=== PATIENT | female | born 1995 | race Two or more races ===

== ENCOUNTER 2016-11-06 22:32 | Emergency (ER) | payer BC, OTHER ==
[2016-11-06 22:53] VITALS: PULSE 98
[2016-11-06] MEDS ORDERED: METOCLOPRAMIDE 5 MG/ML 2 ML VIAL IVP STA (23:27)
[2016-11-06] MEDS ORDERED: MORPHINE SULFATE 2 MG/ML SYRINGE IVP ONE (23:27)
[2016-11-06] MEDS ORDERED: SODIUM CHLORIDE 0.9% 1,000 ML IV ONE (23:28)
--- NOTE | 2016-11-06 23:32 | ED ---
Abdominal Pain HPI - General Chief Complaint: Abdominal Pain Stated Complaint: 16 weeks /Cramping Time Seen by Provider: 11/06/16 23:21 Source: patient Mode of arrival: ambulatory Limitations: no limitations - History of Present Illness Initial Comments: 21-year-old female patient presents to emergency department today for complaints of upper abdominal pain. Patient states that she had onset of pain around 9 PM this evening. States she states shortly after she had onset of vomiting. She states she has vomited continuously since 9:00. She does report that she is 16 weeks . She has no complications with her so far. She is . She denies any vaginal bleeding or discharge. She denies any radiation of the pain to her back. She describes the pain as a sharp cramping pain in both her right and left upper quadrants. She denies ever having pain similar to this in the past. Last bowel movement was this morning, she states it was normal. Patient denies any recent rash, fever, chills, shortness breath, chest pain, diarrhea, constipation, back pain, numbness, tingling, dizziness, weakness, hematuria, dysuria, urinary urgency, urinary frequency, headache, visual changes, or any other complaints. - Related Data Home Medications Medication Instructions Recorded Confirmed Egv-Qavh-Osoah Acid 1 cap PO DAILY 11/06/16 11/06/16 [-U Capsule (formulary)] Previous Rx's Medication Instructions Recorded Nitrofurantoin Monohyd/M-Cryst 100 mg PO Q12HR #14 cap 11/07/16 [Macrobid] Allergies Allergy/AdvReac Type Severity Reaction Status Date / Time No Known Allergies Allergy Verified 11/06/16 23:13 Review of Systems ROS Statement: Those systems with pertinent positive or pertinent negative responses have been documented in the HPI. ROS Other: All systems not noted in ROS Statement are negative. Past Medical History Past Medical History: Thyroid Disorder History of Any Multi-Drug Resistant Organisms: None Reported Past Surgical History: No Surgical Hx Reported Past Psychological History: Anxiety Smoking Status: Never smoker Past Alcohol Use History: None Reported Past Drug Use History: None Reported General Exam Limitations: no limitations General appearance: alert, in distress (Mild), other (Social developed, well- nourished 21-year-old female patient in mild distress related to pain. Vital signs upon presentation were temperature 98.9F, pulse 98, respirations 22, blood pressure 141/71, pulse ox 99% on room air.) Eye exam: Present: normal appearance, PERRL, EOMI. Absent: scleral icterus, conjunctival injection, periorbital swelling ENT exam: Present: normal exam, normal oropharynx, mucous membranes moist Respiratory exam: Present: normal lung sounds bilaterally. Absent: respiratory distress, wheezes, rales, rhonchi, stridor Cardiovascular Exam: Present: regular rate, normal rhythm, normal heart sounds. Absent: systolic murmur, diastolic murmur, rubs, gallop, clicks GI/Abdominal exam: Present: soft, tenderness (Right upper quadrant and left upper quadrant tenderness.), normal bowel sounds. Absent: distended, guarding, rebound, rigid Extremities exam: Present: normal inspection, full ROM, normal capillary refill. Absent: tenderness, pedal edema, joint swelling, calf tenderness Neurological exam: Present: alert, oriented X3, CN II-XII intact Psychiatric exam: Present: normal affect, normal mood Skin exam: Present: warm, dry, intact, normal color. Absent: rash Course Vital Signs 11/06/16 22:50 Temperature 98.9 F Pulse Rate 98 Respiratory 22 Rate Blood Pressure 141/71 O2 Sat by Pulse 99 Oximetry Medical Decision Making - Medical Decision Making 21-year-old female patient presents to emergency department today complaining of upper abdominal pain and vomiting since 9 PM. Patient is 16 weeks however denies any contraction type pain, vaginal bleeding, or vaginal discharge. Lab work was reviewed and did show white blood cell count 13.1, felt to be reactive from vomiting. Other labs are unremarkable. Urinalysis did show many bacteria. Patient is asymptomatic or we will treat her for this with Macrobid. heart tones were 142. Patient was given 1 L of normal saline, 2 mg morphine, and 10 mg of Reglan. Upon reevaluation patient states that she is feeling much better, denies any current symptoms, and states she is eager to go home. I did instruct patient to follow up with her primary care physician for recheck tomorrow. I did instruct her to return here immediately for any new, worsening, or concerning symptoms. She verbalized understanding and agreed with this plan. - Lab Data Result diagrams: 11/06/16 23:54 11/06/16 23:54 Lab Results 11/06/16 11/06/16 11/07/16 Range/Units 23:54 23:54 00:15 WBC 13.1 H (4.0-11.0) k/uL RBC 3.99 (3.80-5.40) m/uL Hgb 11.9 (11.4-16.0) gm/dL Hct 34.2 (34.0-46.0) % MCV 85.6 (80.0-100.0) fL MCH 29.7 (25.0-35.0) pg MCHC 34.7 (31.0-37.0) g/dL RDW 14.1 (11.5-15.5) % Plt Count 203 (150-450) k/uL Neutrophils % 70 % Lymphocytes % 24 % Monocytes % 3 % Eosinophils % 1 % Basophils % 0 % Neutrophils # 9.1 H (1.3-7.7) k/uL Lymphocytes # 3.1 (1.0-4.8) k/uL Monocytes # 0.5 (0-1.0) k/uL Eosinophils # 0.2 (0-0.7) k/uL Basophils # 0.0 (0-0.2) k/uL Sodium 135 L (137-145) mmol/L Potassium 3.7 (3.5-5.1) mmol/L Chloride 105 (98-107) mmol/L Carbon Dioxide 20 L (22-30) mmol/L Anion Gap 10 mmol/L BUN 5 L (7-17) mg/dL Creatinine 0.50 L (0.52-1.04) mg/dL Est GFR (MDRD) Af Amer >60 (>60 ml/min/1.73 sqM) Est GFR (MDRD) Non-Af >60 (>60 ml/min/1.73 sqM) Glucose 84 (74-99) mg/dL Calcium 9.3 (8.4-10.2) mg/dL Total Bilirubin 0.3 (0.2-1.3) mg/dL AST 17 (14-36) U/L ALT 27 (9-52) U/L Alkaline Phosphatase 49 (38-126) U/L Total Protein 6.1 L (6.3-8.2) g/dL Albumin 3.3 L (3.5-5.0) g/dL Amylase 31 (30-110) U/L Lipase 156 (23-300) U/L Urine Color Light Yellow Urine Appearance Cloudy H (Clear) Urine pH 7.0 (5.0-8.0) Ur Specific [place] 1.006 (1.001-1.035) Urine Protein Negative (Negative) Urine Glucose (UA) Negative (Negative) Urine Ketones Negative (Negative) Urine Blood Negative (Negative) Urine Nitrite Negative (Negative) Urine Bilirubin Negative (Negative) Urine Urobilinogen <2.0 (<2.0) mg/dL Ur Leukocyte Esterase Negative (Negative) Urine WBC 1 (0-5) /hpf Ur Squamous Epith Cells <1 (0-4) /hpf Amorphous Sediment Rare H (None) /hpf Urine Bacteria Many H (None) /hpf Urine Mucus Rare H (None) /hpf Disposition Clinical Impression: Abdominal pain, Asymptomatic bacteriuria during Disposition: HOME SELF-CARE Condition: Good Instructions: Abdominal Pain in (ED), Urinary Tract Infection in (ED) Additional Instructions: Increase fluids. Follow-up with her primary care physician for recheck in 1-2 days. Complete antibiotic prescription in full. Return immediately for any new , worsening, or concerning symptoms. Prescriptions: Nitrofurantoin Monohyd/M-Cryst [Macrobid] 100 mg PO Q12HR #14 cap Referrals: Michael Winkler MD [Primary Care Provider] - 1-2 days Time of Disposition: 01:01
[2016-11-07 00:02] LABS: Basophils % (A) 0 %; CH 29.2; CHCM 34.3; Eosinophils # (A) 0.2 k/uL (0-0.7); Eosinophils % (A) 1 %; HCT 34.2 % (34.0-46.0); HDW 3.06; HGB 11.9 gm/dL (11.4-16.0); Luc # (Auto) 0.16; Luc % (Auto) 1; Lymphocytes # (A) 3.1 k/uL (1.0-4.8); Lymphocytes % (A) 24 %; MCH 29.7 pg (25.0-35.0); MCHC 34.7 g/dL (31.0-37.0); MCV 85.6 fL (80.0-100.0); Mean Platelet Volume 7.5; Monocytes # (A) 0.5 k/uL (0-1.0); Monocytes % (A) 3 %; Neutrophils # (A) 9.1 k/uL (1.3-7.7); Neutrophils % (A) 70 %; RBC 3.99 m/uL (3.80-5.40); RDW 14.1 % (11.5-15.5); WBC 13.1 k/uL (4.0-11.0); WBC (Perox) 13.41
[2016-11-07 00:11] LABS: ALT 27 U/L (9-52); AST 17 U/L (14-36); Alkaline Phosphatase 49 U/L (38-126); Amylase 31 U/L (30-110); Anion Gap 10 mmol/L; Blood Urea Nitrogen 5 mg/dL (7-17); Calcium 9.3 mg/dL (8.4-10.2); Carbon Dioxide 20 mmol/L (22-30); Chloride 105 mmol/L (98-107); Glucose 84 mg/dL (74-99); Non-African American GFR(MDRD) >60 (>60 ml/min/1.73 sqM); Potassium 3.7 mmol/L (3.5-5.1); Sodium 135 mmol/L (137-145); Total Bilirubin 0.3 mg/dL (0.2-1.3); Total Protein 6.1 g/dL (6.3-8.2)
[2016-11-07 00:36] LABS: Amorphous Sediment,Urine Rare /hpf; Appearance,Urine Cloudy (Clear); Bacteria,Urine Many /hpf; Bilirubin,Urine Negative (Negative); Glucose,Urine (UA) Negative (Negative); Ketones,Urine Negative (Negative); Leukocyte Esterase,Urine Negative (Negative); Mucus,Urine Rare /hpf; Nitrite,Urine Negative (Negative); Particle Count 6507; Protein,Urine Negative (Negative); Specific Gravity,Urine 1.006 (1.001-1.035); Squamous Epithelial Cell,Urine <1 /hpf (0-4); UA Billing (MACRO vs. MICRO) MICRO; Urobilinogen,Urine <2.0 mg/dL (<2.0); WBC,Urine 1 /hpf (0-5)
[2016-11-07 01:22] VITALS: BP 130/72; RESP 16; TEMP 98.7
== END 2016-11-07 01:21 | disposition home or self-care (01) ==
LOC: EC 22:32
DX: O99.89 Other specified diseases and conditions complicating pregnancy, childbirth and the puerperium (principal); R10.10 Upper abdominal pain, unspecified; R82.71 Bacteriuria; O21.0 Mild hyperemesis gravidarum; Z3A.16 16 weeks gestation of pregnancy
CPT/HCPCS: 99284 ×2; 96374 ×2; 96375 ×2; 36415; 80053; 82150; 83690; 85025; 81001; J2765; J2270

== ENCOUNTER 2017-09-03 17:23 | Emergency (ER) | payer BC, OTHER ==
[2017-09-03 18:32] VITALS: TEMP 98.3
--- NOTE | 2017-09-03 20:00 | ED ---
General Adult HPI - General Chief complaint: Upper Respiratory Infection Stated complaint: vomiting, congestion Time Seen by Provider: 09/03/17 19:33 Source: patient, RN notes reviewed Mode of arrival: ambulatory Limitations: no limitations - History of Present Illness Initial comments: 21-year-old female presents to the emergency department for a chief complaint of cough 2 days. Patient denies history of asthma. Denies shortness of breath. Patient also admits to ear pain bilaterally. Patient states she has a sore throat 2 days as well. Patient also has been experiencing some nausea with 2 episodes of vomiting. Patient denies nausea at this time. Denies any chance of . Patient also has had 2 bouts of diarrhea for the past 2 days. Patient states she has been able to eat saltine crackers and drink water. Patient denies any fevers. Patient denies any neck pain. Patient denies any abdominal pain. Denies any urinary symptoms such as pain with urination or increased frequency of urination. Patient has no other complaints at this time including shortness of breath, chest pain, abdominal pain, nausea or vomiting, headache, or visual changes. - Related Data Home Medications Medication Instructions Recorded Confirmed Acetaminophen Tab [Tylenol Tab] 650 mg PO Q6H PRN 09/03/17 09/03/17 Dm/Acetaminophen/Doxylamine [Vicks 1 cap PO HS 09/03/17 09/03/17 Nyquil Liquicaps] Previous Rx's Medication Instructions Recorded Ondansetron HCl [Zofran] 4 mg PO Q8HR PRN #14 tablet 09/03/17 Allergies Allergy/AdvReac Type Severity Reaction Status Date / Time No Known Allergies Allergy Verified 09/03/17 19:45 Review of Systems ROS Statement: Those systems with pertinent positive or pertinent negative responses have been documented in the HPI. ROS Other: All systems not noted in ROS Statement are negative. Past Medical History Past Medical History: Thyroid Disorder History of Any Multi-Drug Resistant Organisms: None Reported Past Surgical History: No Surgical Hx Reported Past Psychological History: Anxiety Smoking Status: Never smoker Past Alcohol Use History: None Reported Past Drug Use History: None Reported General Exam Limitations: no limitations General appearance: alert, in no apparent distress Head exam: Present: atraumatic, normocephalic, normal inspection Eye exam: Present: normal appearance, PERRL, EOMI. Absent: scleral icterus, conjunctival injection, periorbital swelling ENT exam: Present: normal exam, normal oropharynx, mucous membranes moist, TM's normal bilaterally, normal external ear exam Neck exam: Present: normal inspection, full ROM. Absent: tenderness, meningismus, lymphadenopathy Respiratory exam: Present: normal lung sounds bilaterally. Absent: respiratory distress, wheezes, rales, rhonchi, stridor Cardiovascular Exam: Present: regular rate, normal rhythm, normal heart sounds. Absent: systolic murmur, diastolic murmur, rubs, gallop, clicks GI/Abdominal exam: Present: soft, tenderness (minimal generalized abdominal tenderness), normal bowel sounds. Absent: distended, guarding, rebound, rigid Neurological exam: Present: alert, oriented X3, CN II-XII intact Psychiatric exam: Present: normal affect, normal mood Course Vital Signs 09/03/17 18:29 Temperature 98.3 F Pulse Rate 71 Respiratory 18 Rate Blood Pressure 100/64 O2 Sat by Pulse 99 Oximetry Medical Decision Making - Medical Decision Making 21-year-old female presents to the emergency department for multiple complaints. Patient has been experiencing a cough, ear pain, sore throat and 2 bouts of vomiting and diarrhea 2 days. No fevers. Vitals within normal limits at the emergency department. On exam lungs clear to auscultation bilaterally. Tympanic membranes non-erythematous. Abdomen with minimal tenderness. Chest x-ray shows no acute process. Strep negative. Patient likely has a viral gastroenteritis as well as upper respiratory infection. She was educated to eat from the [employer] diet. She was educated to remain hydrated with plenty of fluids. She will return to the emergency room if she has any worsening symptoms. Otherwise she'll follow-up with primary care in 1-2 days. - Lab Data Lab Results 09/03/17 Range/Units 19:59 Group A Strep Rapid Negative (Negative) Disposition Clinical Impression: Gastroenteritis, Upper respiratory infection Disposition: HOME SELF-CARE Condition: Good Instructions: Upper Respiratory Infection (ED), Gastroenteritis (ED) Additional Instructions: Please eat bananas, rice, applesauce, or toast. Please drink plenty of fluids. Please follow-up with primary care in 1-2 days. Return to the emergency department if you have any worsening symptoms. Prescriptions: Ondansetron HCl [Zofran] 4 mg PO Q8HR PRN #14 tablet PRN Reason: Nausea Is patient prescribed a controlled substance at d/c from ED?: No Referrals: Michael Winkler MD [Primary Care Provider] - 1-2 days Time of Disposition: 21:03
--- NOTE | 2017-09-03 20:54 | XR ---
EXAMINATION: XR chest 2V DATE AND TIME: 09/03/2017 8:44 PM ORDERING PROVIDER: Sidney Gao CLINICAL INDICATION: Pain TECHNIQUE: PA and lateral COMPARISON: None. DESCRIPTION: The lungs are clear. The pleural spaces are negative. The cardiac silhouette is not enlarged. The mediastinal and pleural silhouettes are unremarkable. The skeletal structures are intact without focal findings. The soft tissues are unremarkable. IMPRESSION: NO ACUTE PROCESS.
[2017-09-03 21:09] VITALS: PULSE 86; RESP 15
[2017-09-03 21:11] VITALS: BP 119/71
== END 2017-09-03 21:52 | disposition home or self-care (01) ==
LOC: EC 17:23
DX: K52.9 Noninfective gastroenteritis and colitis, unspecified (principal); J06.9 Acute upper respiratory infection, unspecified; H92.03 Otalgia, bilateral; Z79.891 Long term (current) use of opiate analgesic; Z79.899 Other long term (current) drug therapy
CPT/HCPCS: 71046; 87081; 87430; 99283

== ENCOUNTER 2018-03-20 17:12 | Emergency (ER) | payer BC, OTHER ==
[2018-03-20] MEDS ORDERED: PANTOPRAZOLE 40 MG/10 ML VIAL IVP STA (17:45)
[2018-03-20] MEDS ORDERED: SODIUM CHLORIDE 0.9% 2,000 ML IV STA (17:45)
[2018-03-20] MEDS ORDERED: ONDANSETRON 4 MG/2 ML VIAL IVP STA (17:45)
--- NOTE | 2018-03-20 17:53 | ED ---
Nausea/Vomiting/Diarrhea HPI - General Chief complaint: Nausea/Vomiting/Diarrhea Stated complaint: NVD Time Seen by Provider: 03/20/18 17:45 Source: patient, RN notes reviewed Mode of arrival: ambulatory Limitations: no limitations - History of Present Illness Initial comments: 22-year-old female sent emergency Department with chief complaint of nausea, vomiting, diarrhea. Patient states symptoms started this morning. She states that she's had continuous nausea vomiting diarrhea. Patient denies any melena, hematochezia, hematemesis coffee-ground emesis. Denies fevers or chills. Patient states that her last episode of emesis was bile approximately 10 minutes prior arrival. Patient complains of mild diffuse abdominal discomfort. Patient has no fever or chills. Denies any chance . Denies any vaginal bleeding or vaginal discharge. - Related Data Home Medications Medication Instructions Recorded Confirmed Etonogestrel/Ethinyl Estradiol 1 ring VG Q28D 03/20/18 03/20/18 [Nuvaring Vaginal Ring] Previous Rx's Medication Instructions Recorded Ondansetron Odt [Zofran Odt] 4 mg PO Q8HR PRN #10 tab 03/20/18 Allergies Allergy/AdvReac Type Severity Reaction Status Date / Time No Known Allergies Allergy Verified 03/20/18 18:53 Review of Systems ROS Statement: Those systems with pertinent positive or pertinent negative responses have been documented in the HPI. ROS Other: All systems not noted in ROS Statement are negative. Past Medical History Past Medical History: Thyroid Disorder History of Any Multi-Drug Resistant Organisms: None Reported Past Surgical History: No Surgical Hx Reported Past Psychological History: Anxiety Smoking Status: Never smoker Past Alcohol Use History: None Reported Past Drug Use History: None Reported General Exam Limitations: no limitations General appearance: alert, in no apparent distress Head exam: Present: atraumatic, normocephalic, normal inspection Neck exam: Present: normal inspection. Absent: tenderness, meningismus, lymphadenopathy Respiratory exam: Present: normal lung sounds bilaterally. Absent: respiratory distress, wheezes, rales, rhonchi, stridor Cardiovascular Exam: Present: regular rate, normal rhythm, normal heart sounds. Absent: systolic murmur, diastolic murmur, rubs, gallop, clicks GI/Abdominal exam: Present: soft, tenderness (Mild diffuse), normal bowel sounds. Absent: distended, guarding, rebound, rigid Back exam: Absent: CVA tenderness (R), CVA tenderness (L) Skin exam: Present: warm, dry, intact, normal color. Absent: rash Course Vital Signs 03/20/18 03/20/18 17:14 18:21 Temperature 98.5 F Pulse Rate 100 96 Respiratory 18 16 Rate Blood Pressure 115/78 109/69 O2 Sat by Pulse 99 99 Oximetry Medical Decision Making - Medical Decision Making 22-year-old female presents emergency department for nausea vomiting diarrhea. Patient had lab work, IV hydration, antiemetics. Patient states that she feels much better at this time. Patient's had no recurrence of emesis. Patient will be discharged with Zofran advised to stick to clear liquid diet and progress as tolerated. - Lab Data Result diagrams: 03/20/18 18:15 03/20/18 18:15 Lab Results 03/20/18 03/20/18 03/20/18 Range/Units 18:15 18:15 18:30 WBC 12.3 H (3.8-10.6) k/uL RBC 5.21 (3.80-5.40) m/uL Hgb 14.4 (11.4-16.0) gm/dL Hct 43.1 (34.0-46.0) % MCV 82.8 (80.0-100.0) fL MCH 27.7 (25.0-35.0) pg MCHC 33.5 (31.0-37.0) g/dL RDW 15.3 (11.5-15.5) % Plt Count 264 (150-450) k/uL Neutrophils % 89 % Lymphocytes % 6 % Monocytes % 3 % Eosinophils % 1 % Basophils % 0 % Neutrophils # 11.0 H (1.3-7.7) k/uL Lymphocytes # 0.8 L (1.0-4.8) k/uL Monocytes # 0.3 (0-1.0) k/uL Eosinophils # 0.1 (0-0.7) k/uL Basophils # 0.0 (0-0.2) k/uL Sodium 142 (137-145) mmol/L Potassium 4.3 (3.5-5.1) mmol/L Chloride 111 H (98-107) mmol/L Carbon Dioxide 21 L (22-30) mmol/L Anion Gap 10 mmol/L BUN 14 (7-17) mg/dL Creatinine 0.84 (0.52-1.04) mg/dL Est GFR (CKD-EPI)AfAm >90 (>60 ml/min/1.73 sqM) Est GFR (CKD-EPI)NonAf >90 (>60 ml/min/1.73 sqM) Glucose 95 (74-99) mg/dL Calcium 9.2 (8.4-10.2) mg/dL Total Bilirubin 1.0 (0.2-1.3) mg/dL AST 25 (14-36) U/L ALT 35 (9-52) U/L Alkaline Phosphatase 41 (38-126) U/L Total Protein 7.4 (6.3-8.2) g/dL Albumin 4.3 (3.5-5.0) g/dL Amylase 36 (30-110) U/L Lipase 132 (23-300) U/L Urine Color Light Yellow Urine Appearance Clear (Clear) Urine pH 5.5 (5.0-8.0) Ur Specific [place] 1.012 (1.001-1.035) Urine Protein Negative (Negative) Urine Glucose (UA) Negative (Negative) Urine Ketones Negative (Negative) Urine Blood Negative (Negative) Urine Nitrite Negative (Negative) Urine Bilirubin Negative (Negative) Urine Urobilinogen <2.0 (<2.0) mg/dL Ur Leukocyte Esterase Negative (Negative) Urine HCG, Qual (Not Detectd) 03/20/18 Range/Units 18:30 WBC (3.8-10.6) k/uL RBC (3.80-5.40) m/uL Hgb (11.4-16.0) gm/dL Hct (34.0-46.0) % MCV (80.0-100.0) fL MCH (25.0-35.0) pg MCHC (31.0-37.0) g/dL RDW (11.5-15.5) % Plt Count (150-450) k/uL Neutrophils % % Lymphocytes % % Monocytes % % Eosinophils % % Basophils % % Neutrophils # (1.3-7.7) k/uL Lymphocytes # (1.0-4.8) k/uL Monocytes # (0-1.0) k/uL Eosinophils # (0-0.7) k/uL Basophils # (0-0.2) k/uL Sodium (137-145) mmol/L Potassium (3.5-5.1) mmol/L Chloride (98-107) mmol/L Carbon Dioxide (22-30) mmol/L Anion Gap mmol/L BUN (7-17) mg/dL Creatinine (0.52-1.04) mg/dL Est GFR (CKD-EPI)AfAm (>60 ml/min/1.73 sqM) Est GFR (CKD-EPI)NonAf (>60 ml/min/1.73 sqM) Glucose (74-99) mg/dL Calcium (8.4-10.2) mg/dL Total Bilirubin (0.2-1.3) mg/dL AST (14-36) U/L ALT (9-52) U/L Alkaline Phosphatase (38-126) U/L Total Protein (6.3-8.2) g/dL Albumin (3.5-5.0) g/dL Amylase (30-110) U/L Lipase (23-300) U/L Urine Color Urine Appearance (Clear) Urine pH (5.0-8.0) Ur Specific [place] (1.001-1.035) Urine Protein (Negative) Urine Glucose (UA) (Negative) Urine Ketones (Negative) Urine Blood (Negative) Urine Nitrite (Negative) Urine Bilirubin (Negative) Urine Urobilinogen (<2.0) mg/dL Ur Leukocyte Esterase (Negative) Urine HCG, Qual Not Detected (Not Detectd) Disposition Clinical Impression: Gastroenteritis Disposition: HOME SELF-CARE Condition: Stable Instructions (If sedation given, give patient instructions): Gastroenteritis ( ED) Additional Instructions: Please return to the Emergency Department if symptoms worsen or any other concerns. Prescriptions: Ondansetron Odt [Zofran Odt] 4 mg PO Q8HR PRN #10 tab PRN Reason: Nausea Is patient prescribed a controlled substance at d/c from ED?: No Referrals: Michael Winkler MD [Primary Care Provider] - 1-2 days Time of Disposition: 18:58
[2018-03-20 18:31] LABS: Basophils % (A) 0 %; Eosinophils # (A) 0.1 k/uL (0-0.7); Eosinophils % (A) 1 %; HCT 43.1 % (34.0-46.0); HGB 14.4 gm/dL (11.4-16.0); Lymphocytes # (A) 0.8 k/uL (1.0-4.8); Lymphocytes % (A) 6 %; MCH 27.7 pg (25.0-35.0); MCHC 33.5 g/dL (31.0-37.0); MCV 82.8 fL (80.0-100.0); Mean Platelet Volume 7.2; Monocytes # (A) 0.3 k/uL (0-1.0); Monocytes % (A) 3 %; Neutrophils % (A) 89 %; Platelet Count 264 k/uL (150-450); RBC 5.21 m/uL (3.80-5.40); RDW 15.3 % (11.5-15.5); WBC 12.3 k/uL (3.8-10.6)
[2018-03-20 18:41] LABS: Appearance,Urine Clear (Clear); Bilirubin,Urine Negative (Negative); Blood,Urine Negative (Negative); Color,Urine Light Yellow; Glucose,Urine (UA) Negative (Negative); Ketones,Urine Negative (Negative); Leukocyte Esterase,Urine Negative (Negative); Nitrite,Urine Negative (Negative); PH, Urine 5.5 (5.0-8.0); Protein,Urine Negative (Negative); Specific Gravity,Urine 1.012 (1.001-1.035); Urobilinogen,Urine <2.0 mg/dL (<2.0)
[2018-03-20 18:42] LABS: ALT 35 U/L (9-52); AST 25 U/L (14-36); Albumin 4.3 g/dL (3.5-5.0); Alkaline Phosphatase 41 U/L (38-126); Amylase 36 U/L (30-110); Anion Gap 10 mmol/L; Blood Urea Nitrogen 14 mg/dL (7-17); Calcium 9.2 mg/dL (8.4-10.2); Carbon Dioxide 21 mmol/L (22-30); Chloride 111 mmol/L (98-107); Glucose 95 mg/dL (74-99); Lipase 132 U/L (23-300); Potassium 4.3 mmol/L (3.5-5.1); Sodium 142 mmol/L (137-145); Total Protein 7.4 g/dL (6.3-8.2)
[2018-03-20 19:16] VITALS: BP 95/69; PULSE 66; RESP 18; TEMP 98.3
== END 2018-03-20 19:15 | disposition home or self-care (01) ==
LOC: EC 17:12
DX: K52.9 Noninfective gastroenteritis and colitis, unspecified (principal); Z79.3 Long term (current) use of hormonal contraceptives
CPT/HCPCS: 36415; 80053; 82150; 83690; 85025; 81003; 81025; 99284; 96374; 96375; 96361; J2405; C9113

== ENCOUNTER → 2018-09-26 | Outpatient (CLI) | payer BC, OTHER ==
[2018-09-26 12:41] LABS: Basophils % (A) 0 %; Eosinophils # (A) 0.2 k/uL (0-0.7); Eosinophils % (A) 2 %; HCT 39.9 % (34.0-46.0); HGB 13.2 gm/dL (11.4-16.0); Lymphocytes # (A) 3.2 k/uL (1.0-4.8); Lymphocytes % (A) 29 %; MCH 27.2 pg (25.0-35.0); MCHC 33.2 g/dL (31.0-37.0); MCV 81.8 fL (80.0-100.0); Mean Platelet Volume 7.2; Monocytes # (A) 0.2 k/uL (0-1.0); Monocytes % (A) 2 %; Neutrophils # (A) 7.2 k/uL (1.3-7.7); Neutrophils % (A) 66 %; Platelet Count 280 k/uL (150-450); RBC 4.88 m/uL (3.80-5.40); RDW 14.8 % (11.5-15.5); WBC 10.9 k/uL (3.8-10.6)
[2018-09-26 12:53] LABS: ALT 26 U/L (9-52); AST 26 U/L (14-36); African American GFR (CKD) >90 (>60 ml/min/1.73 sqM); Albumin 4.3 g/dL (3.5-5.0); Albumin/Globulin Ratio 1.4; Alkaline Phosphatase 46 U/L (38-126); Anion Gap 10 mmol/L; Blood Urea Nitrogen 14 mg/dL (7-17); Calcium 9.5 mg/dL (8.4-10.2); Carbon Dioxide 24 mmol/L (22-30); Chloride 105 mmol/L (98-107); Glucose 141 mg/dL (74-99); Sodium 139 mmol/L (137-145); Total Bilirubin 0.7 mg/dL (0.2-1.3); Total Protein 7.3 g/dL (6.3-8.2)
[2018-09-26 13:10] LABS: T4, Free (Free Thyroxine) 1.01 ng/dL (0.78-2.19)
== END | disposition home or self-care (01) ==
LOC: LABWHC1 12:15
PROVIDERS: ATTEND Nurse Practitioner Family
DX: R25.1 Tremor, unspecified (principal)
CPT/HCPCS: 36415; 80053; 82785; 84439; 84443; 84481; 85025

== ENCOUNTER 2019-12-21 23:32 | Emergency (ER) | payer BC, OTHER ==
[2019-12-21 23:37] VITALS: BP 139/82; PULSE 90; RESP 17; TEMP 98.7
[2019-12-21] MEDS ORDERED: SODIUM CHLORIDE 0.9% 500 ML 500 ML IV ONE (23:54)
--- NOTE | 2019-12-22 00:02 | ED ---
General Adult HPI - General Chief complaint: Vaginal Bleeding Stated complaint: Vaginal Bleeding, 8 wks pgt Time Seen by Provider: 12/21/19 23:40 Source: patient Mode of arrival: ambulatory Limitations: no limitations - History of Present Illness Initial comments: 24-year-old female presents to emergency Department with complaints of brown vaginal discharge, onset 30 minutes prior to arrival. Patient states she is 8 weeks , , and previously miscarried 2 months ago. She states she had a positive home test on 12/12/19, confirmed at her doctor's office on 12/15/2019. No US as of yet. Has established care with OBGYN in [place], she cannot recall the name. Patient reports a streak of brown discharge on the toilet paper with wiping. She does not have to wear a pad or liner. Patient also complains of very mild lower abdominal cramping. Denies radiation to her back. Patient denies any recent rash, fever, chills, cough, shortness of breath, chest pain, nausea, vomiting, diarrhea, constipation, back pain, numbness, tingling, dizziness, weakness, hematuria, dysuria, urinary urgency, urinary frequency, headache, visual changes, or any other complaints. - Related Data Home Medications Medication Instructions Recorded Confirmed Etonogestrel/Ethinyl Estradiol 1 ring VG Q28D 03/20/18 03/20/18 [Nuvaring Vaginal Ring] Previous Rx's Medication Instructions Recorded Ondansetron Odt [Zofran Odt] 4 mg PO Q8HR PRN #10 tab 03/20/18 Allergies Allergy/AdvReac Type Severity Reaction Status Date / Time No Known Allergies Allergy Verified 12/21/19 23:37 Review of Systems ROS Statement: Those systems with pertinent positive or pertinent negative responses have been documented in the HPI. ROS Other: All systems not noted in ROS Statement are negative. Past Medical History Past Medical History: Thyroid Disorder History of Any Multi-Drug Resistant Organisms: None Reported Past Surgical History: No Surgical Hx Reported Past Psychological History: Anxiety Smoking Status: Never smoker Past Alcohol Use History: None Reported Past Drug Use History: None Reported General Exam Limitations: no limitations (Well-developed, well-nourished female in no acute distress. Initial temperature 98.7F, pulse 90, respirations 17, blood pressure 139/82, pulse ox 98% on room air.) General appearance: alert, in no apparent distress Respiratory exam: Present: normal lung sounds bilaterally. Absent: respiratory distress, wheezes, rales, rhonchi, stridor Cardiovascular Exam: Present: regular rate, normal rhythm, normal heart sounds. Absent: systolic murmur, diastolic murmur, rubs, gallop, clicks GI/Abdominal exam: Present: soft, normal bowel sounds. Absent: distended, tenderness, guarding, rebound, rigid Neurological exam: Present: alert, oriented X3, CN II-XII intact Psychiatric exam: Present: normal affect, normal mood Skin exam: Present: warm, dry, intact, normal color. Absent: rash Course Vital Signs 12/21/19 23:34 Temperature 98.7 F Pulse Rate 90 Respiratory 17 Rate Blood Pressure 139/82 O2 Sat by Pulse 98 Oximetry Medical Decision Making - Medical Decision Making 24-year-old female patient presents to the emergency department today for evaluation of brown vaginal discharge concern for bleeding in early . She had positive home test on 12/12/2019. Has not had a normal period since spontaneous in October. Physical examination is unremarkable. Abdomen soft and nontender. Labs were obtained, ABO/Rh was A+. HCG was 43. US was obtained and showed no evidence for intrauterine . Did discuss findings and results with the patient. We did discuss possibility of early vs miscarriage. Also talked about the possibility of continued elevated hCG from previous in October or possibility of hCG secreting tumor though these possibilities are much less likely. She will be discharged to follow-up with her [facility] for recheck in 1-2 days. She is given a slip to have repeat hCG performed at this hospital and 2 days. Return parameters were discussed in detail. She verbalizes understanding and agrees with this plan. - Lab Data Result diagrams: 12/22/19 00:18 12/22/19 00:18 Lab Results 12/22/19 12/22/19 12/22/19 Range/Units 00:15 00:18 00:18 WBC 11.8 H (3.8-10.6) k/uL RBC 4.62 (3.80-5.40) m/uL Hgb 13.0 (11.4-16.0) gm/dL Hct 37.7 (34.0-46.0) % MCV 81.7 (80.0-100.0) fL MCH 28.1 (25.0-35.0) pg MCHC 34.5 (31.0-37.0) g/dL RDW 14.0 (11.5-15.5) % Plt Count 281 (150-450) k/uL MPV 7.7 Neutrophils % 57 % Lymphocytes % 36 % Monocytes % 3 % Eosinophils % 2 % Basophils % 1 % Neutrophils # 6.8 (1.3-7.7) k/uL Lymphocytes # 4.2 (1.0-4.8) k/uL Monocytes # 0.3 (0-1.0) k/uL Eosinophils # 0.2 (0-0.7) k/uL Basophils # 0.1 (0-0.2) k/uL Sodium (137-145) mmol/L Potassium (3.5-5.1) mmol/L Chloride (98-107) mmol/L Carbon Dioxide (22-30) mmol/L Anion Gap mmol/L BUN (7-17) mg/dL Creatinine (0.52-1.04) mg/dL Est GFR (CKD-EPI)AfAm (>60 ml/min/1.73 sqM) Est GFR (CKD-EPI)NonAf (>60 ml/min/1.73 sqM) Glucose (74-99) mg/dL Calcium (8.4-10.2) mg/dL Total Bilirubin (0.2-1.3) mg/dL AST (14-36) U/L ALT (4-34) U/L Alkaline Phosphatase (38-126) U/L Total Protein (6.3-8.2) g/dL Albumin (3.5-5.0) g/dL HCG, Quant mIU/mL Urine Color Light Yellow Urine Appearance Clear (Clear) Urine pH 6.5 (5.0-8.0) Ur Specific [place] 1.018 (1.001-1.035) Urine Protein Negative (Negative) Urine Glucose (UA) Negative (Negative) Urine Ketones Negative (Negative) Urine Blood Negative (Negative) Urine Nitrite Negative (Negative) Urine Bilirubin Negative (Negative) Urine Urobilinogen <2.0 (<2.0) mg/dL Ur Leukocyte Esterase Negative (Negative) Blood Type A Positive Blood Type Recheck No Previous Record Bld Type Recheck Status ABR ONLY 12/22/19 Range/Units 00:18 WBC (3.8-10.6) k/uL RBC (3.80-5.40) m/uL Hgb (11.4-16.0) gm/dL Hct (34.0-46.0) % MCV (80.0-100.0) fL MCH (25.0-35.0) pg MCHC (31.0-37.0) g/dL RDW (11.5-15.5) % Plt Count (150-450) k/uL MPV Neutrophils % % Lymphocytes % % Monocytes % % Eosinophils % % Basophils % % Neutrophils # (1.3-7.7) k/uL Lymphocytes # (1.0-4.8) k/uL Monocytes # (0-1.0) k/uL Eosinophils # (0-0.7) k/uL Basophils # (0-0.2) k/uL Sodium 136 L (137-145) mmol/L Potassium 4.4 (3.5-5.1) mmol/L Chloride 107 (98-107) mmol/L Carbon Dioxide 22 (22-30) mmol/L Anion Gap 7 mmol/L BUN 14 (7-17) mg/dL Creatinine 0.67 (0.52-1.04) mg/dL Est GFR (CKD-EPI)AfAm >90 (>60 ml/min/1.73 sqM) Est GFR (CKD-EPI)NonAf >90 (>60 ml/min/1.73 sqM) Glucose 125 H (74-99) mg/dL Calcium 9.4 (8.4-10.2) mg/dL Total Bilirubin 0.6 (0.2-1.3) mg/dL AST 37 H (14-36) U/L ALT 23 (4-34) U/L Alkaline Phosphatase 48 (38-126) U/L Total Protein 7.3 (6.3-8.2) g/dL Albumin 4.0 (3.5-5.0) g/dL HCG, Quant 43.6 mIU/mL Urine Color Urine Appearance (Clear) Urine pH (5.0-8.0) Ur Specific [place] (1.001-1.035) Urine Protein (Negative) Urine Glucose (UA) (Negative) Urine Ketones (Negative) Urine Blood (Negative) Urine Nitrite (Negative) Urine Bilirubin (Negative) Urine Urobilinogen (<2.0) mg/dL Ur Leukocyte Esterase (Negative) Blood Type Blood Type Recheck Bld Type Recheck Status - Radiology Data Radiology results: report reviewed OB ultrasound was obtained. Report was reviewed in its entirety. Impression by Dr. Kaur shows no evidence of intrauterine . Differential considerations include early or miscarriage, with the possibility of ectopic is not completely excluded. Correlate with serial beta hCG follow-up ultrasound as clinically indicated. Disposition Clinical Impression: Vaginal bleeding during Disposition: HOME SELF-CARE Condition: Good Instructions (If sedation given, give patient instructions): Threatened Miscarriage (ED) Additional Instructions: Follow up with your OBGYN for recheck as soon as possible. Return to this lab to have repeat hormone level drawn. Return to the emergency department immediately for any new, worsening, or concerning symptoms. Is patient prescribed a controlled substance at d/c from ED?: No Referrals: Michael Winkler MD [Primary Care Provider] - 1-2 days Time of Disposition: 02:09
[2019-12-22 00:30] LABS: Basophils # (A) 0.1 k/uL (0-0.2); Basophils % (A) 1 %; Eosinophils # (A) 0.2 k/uL (0-0.7); Eosinophils % (A) 2 %; HCT 37.7 % (34.0-46.0); Lymphocytes # (A) 4.2 k/uL (1.0-4.8); Lymphocytes % (A) 36 %; MCH 28.1 pg (25.0-35.0); MCHC 34.5 g/dL (31.0-37.0); MCV 81.7 fL (80.0-100.0); Mean Platelet Volume 7.7; Monocytes # (A) 0.3 k/uL (0-1.0); Monocytes % (A) 3 %; Neutrophils # (A) 6.8 k/uL (1.3-7.7); Neutrophils % (A) 57 %; Platelet Count 281 k/uL (150-450); RBC 4.62 m/uL (3.80-5.40); WBC 11.8 k/uL (3.8-10.6)
[2019-12-22 00:31] LABS: Appearance,Urine Clear (Clear); Bilirubin,Urine Negative (Negative); Blood,Urine Negative (Negative); Color,Urine Light Yellow; Glucose,Urine (UA) Negative (Negative); Ketones,Urine Negative (Negative); Leukocyte Esterase,Urine Negative (Negative); Nitrite,Urine Negative (Negative); PH, Urine 6.5 (5.0-8.0); Protein,Urine Negative (Negative); Specific Gravity,Urine 1.018 (1.001-1.035); Urobilinogen,Urine <2.0 mg/dL (<2.0)
[2019-12-22 01:03] LABS: ALT 23 U/L (4-34); African American GFR (CKD) >90 (>60 ml/min/1.73 sqM); Anion Gap 7 mmol/L; Blood Urea Nitrogen 14 mg/dL (7-17); Calcium 9.4 mg/dL (8.4-10.2); Carbon Dioxide 22 mmol/L (22-30); Chloride 107 mmol/L (98-107); Glucose 125 mg/dL (74-99); Non-African American GFR(CKD) >90 (>60 ml/min/1.73 sqM); Sodium 136 mmol/L (137-145); Total Bilirubin 0.6 mg/dL (0.2-1.3); Total Protein 7.3 g/dL (6.3-8.2)
[2019-12-22 01:10] LABS: AST 37 U/L (14-36); Alkaline Phosphatase 48 U/L (38-126); Potassium 4.4 mmol/L (3.5-5.1)
--- NOTE | 2019-12-22 01:10 | US ---
EXAM: US First Trimester , Transabdominal CLINICAL HISTORY: ITS.REASON US Reason: pain TECHNIQUE: Real-time transabdominal obstetrical ultrasound of the maternal pelvis and a first trimester with image documentation. COMPARISON: No relevant prior studies available. FINDINGS: Limitations: Limited transabdominal study. Gestation: No evidence of intrauterine . Placenta/amniotic fluid: Cannot be adequately evaluated due to the early gestational age. Uterus/cervix: Unremarkable as visualized. Ovaries: Unremarkable as visualized. Free fluid: No significant free fluid. IMPRESSION: No evidence of intrauterine . Differential considerations include early or miscarriage, with the possibility of ectopic not completely excluded. Correlate with serial beta hCG/followup ultrasound as clinically indicated.
[2019-12-22 01:19] LABS: HCG,Quantitative Serum 43.6 mIU/mL
== END 2019-12-22 02:21 | disposition home or self-care (01) ==
LOC: EC 23:32
DX: O20.9 Hemorrhage in early pregnancy, unspecified (principal); Z3A.08 8 weeks gestation of pregnancy
CPT/HCPCS: 36415; 76801; 80053; 81003; 84702; 85025; 86900; 86901; 99284

== ENCOUNTER 2019-12-23 05:47 | Emergency (ER) | payer BC, OTHER ==
[2019-12-23] MEDS ORDERED: ACETAMINOPHEN TAB 500 MG TAB PO STA (06:22)
--- NOTE | 2019-12-23 06:24 | ED ---
Female Urogenital HPI - General Chief complaint: Vaginal Bleeding Stated complaint: miscarriage Time Seen by Provider: 12/23/19 05:58 Source: patient, RN notes reviewed Mode of arrival: ambulatory Limitations: no limitations - History of Present Illness Initial comments: This a 24-year-old female presents emergency Department with chief complaint of vaginal bleeding in early . Patient is A1 she states that she had a miscarriage 2 months ago but states that she had a negative hCG and November. Patient was seen 2 days ago for spotting is found to have an hCG of 43.6. Patient states bleeding has increased to very heavy. She states that she does have some lower abdominal cramping no dysuria no significant urinary frequency. No fevers chills no flank pain or chest pain or shortness of breath. Patient is following with no joint out [facility] - Related Data Home Medications Medication Instructions Recorded Confirmed Etonogestrel/Ethinyl Estradiol 1 ring VG Q28D 03/20/18 03/20/18 [Nuvaring Vaginal Ring] Previous Rx's Medication Instructions Recorded Ondansetron Odt [Zofran Odt] 4 mg PO Q8HR PRN #10 tab 03/20/18 Allergies Allergy/AdvReac Type Severity Reaction Status Date / Time No Known Allergies Allergy Verified 12/23/19 05:57 Review of Systems ROS Statement: Those systems with pertinent positive or pertinent negative responses have been documented in the HPI. ROS Other: All systems not noted in ROS Statement are negative. Past Medical History Past Medical History: Thyroid Disorder History of Any Multi-Drug Resistant Organisms: None Reported Past Surgical History: No Surgical Hx Reported Past Psychological History: Anxiety Smoking Status: Never smoker Past Alcohol Use History: None Reported Past Drug Use History: None Reported General Exam Limitations: no limitations General appearance: alert, in no apparent distress Head exam: Present: atraumatic, normocephalic, normal inspection Eye exam: Present: normal appearance, PERRL, EOMI. Absent: scleral icterus, conjunctival injection, periorbital swelling Respiratory exam: Present: normal lung sounds bilaterally. Absent: respiratory distress, wheezes, rales, rhonchi, stridor Cardiovascular Exam: Present: regular rate, normal rhythm, normal heart sounds. Absent: systolic murmur, diastolic murmur, rubs, gallop, clicks GI/Abdominal exam: Present: soft, tenderness (Mild to moderate suprapubic), normal bowel sounds. Absent: distended, guarding, rebound, rigid Back exam: Absent: CVA tenderness (R), CVA tenderness (L) Neurological exam: Present: alert, oriented X3 Skin exam: Present: warm, dry, intact, normal color. Absent: rash Course Vital Signs 12/23/19 05:55 Temperature 98 F Pulse Rate 83 Respiratory 18 Rate Blood Pressure 116/72 O2 Sat by Pulse 99 Oximetry Medical Decision Making - Medical Decision Making 24-year-old presented for vaginal bleeding early . Patient's hCG days ago was 43.6, current hCG is 27. Patient is having a miscarriage. Patient we need control vitals are stable. Patient discharged advised to follow with [employer]. - Lab Data Lab Results 12/23/19 12/23/19 Range/Units 06:07 06:07 HCG, Quant 27.0 mIU/mL Urine Color Light Red Urine Appearance Cloudy H (Clear) Urine pH 5.5 (5.0-8.0) Ur Specific [place] 1.020 (1.001-1.035) Urine Protein 1+ H (Negative) Urine Glucose (UA) Negative (Negative) Urine Ketones Negative (Negative) Urine Blood Large H (Negative) Urine Nitrite Negative (Negative) Urine Bilirubin Negative (Negative) Urine Urobilinogen <2.0 (<2.0) mg/dL Ur Leukocyte Esterase Trace H (Negative) Urine RBC >182 H (0-5) /hpf Urine WBC 7 H (0-5) /hpf Ur Squamous Epith Cells 1 (0-4) /hpf Urine Mucus Occasional H (None) /hpf Disposition Clinical Impression: Miscarriage Disposition: HOME SELF-CARE Condition: Stable Instructions (If sedation given, give patient instructions): Miscarriage (ED) Additional Instructions: Please return to the Emergency Department if symptoms worsen or any other concerns. Is patient prescribed a controlled substance at d/c from ED?: No Referrals: Michael Winkler MD [Primary Care Provider] - 1-2 days Time of Disposition: 06:56
[2019-12-23 06:36] LABS: Appearance,Urine Cloudy (Clear); Bilirubin,Urine Negative (Negative); Blood,Urine Large (Negative); Color,Urine Light Red; Glucose,Urine (UA) Negative (Negative); Ketones,Urine Negative (Negative); Leukocyte Esterase,Urine Trace (Negative); Mucus,Urine Occasional /hpf; Nitrite,Urine Negative (Negative); PH, Urine 5.5 (5.0-8.0); Protein,Urine 1+ (Negative); RBC,Urine >182 /hpf (0-5); Squamous Epithelial Cell,Urine 1 /hpf (0-4); Urobilinogen,Urine <2.0 mg/dL (<2.0); WBC,Urine 7 /hpf (0-5)
[2019-12-23 07:14] VITALS: BP 138/86; PULSE 74; RESP 16; TEMP 97
== END 2019-12-23 07:14 | disposition home or self-care (01) ==
LOC: EC 05:47
DX: O03.9 Complete or unspecified spontaneous abortion without complication (principal); Z87.59 Personal history of other complications of pregnancy, childbirth and the puerperium
CPT/HCPCS: 36415; 81001; 84702; 99284

== ENCOUNTER 2020-02-10 10:24 | Emergency (ER) | payer BC, OTHER ==
[2020-02-10 10:39] VITALS: RESP 18
[2020-02-10] MEDS ORDERED: SODIUM CHLORIDE 0.9% 1,000 ML IV STA (11:01)
--- NOTE | 2020-02-10 11:04 | ED ---
General Adult HPI - General Chief complaint: Shortness of Breath Stated complaint: Abd pain, metal taste in mouth Time Seen by Provider: 02/10/20 10:43 Source: patient, RN notes reviewed Mode of arrival: ambulatory Limitations: no limitations - History of Present Illness Initial comments: 24-year-old female with thyroid disorder presents to the emergency room for several complaints. Patient states she started to not feel well yesterday. States she developed slight shortness of breath at that time as well as a metallic taste in her mouth. Patient reports that when she breathes through her mouth she feels fine but when she received her nose it feels shallow. Patient also reports she has had nausea vomiting and diarrhea. States she has abdominal pain as well which she thinks is because of the vomiting. She did have a fever of 101.1 earlier today but took DayQuil about 2 hours prior to arrival. She denies cough congestion sore throat.Patient has no other complaints at this time including chest pain, headache, or visual changes. - Related Data Home Medications Medication Instructions Recorded Confirmed No Known Home Medications 02/10/20 02/10/20 Allergies Allergy/AdvReac Type Severity Reaction Status Date / Time No Known Allergies Allergy Verified 02/10/20 13:37 Review of Systems ROS Statement: Those systems with pertinent positive or pertinent negative responses have been documented in the HPI. ROS Other: All systems not noted in ROS Statement are negative. Past Medical History Past Medical History: Thyroid Disorder History of Any Multi-Drug Resistant Organisms: None Reported Past Surgical History: No Surgical Hx Reported Past Psychological History: Anxiety Smoking Status: Never smoker Past Alcohol Use History: None Reported Past Drug Use History: Marijuana General Exam Limitations: no limitations General appearance: alert, in no apparent distress Head exam: Present: atraumatic, normocephalic, normal inspection Eye exam: Present: normal appearance, PERRL, EOMI. Absent: scleral icterus, conjunctival injection, periorbital swelling ENT exam: Present: normal exam, normal oropharynx, mucous membranes moist, TM's normal bilaterally, normal external ear exam Neck exam: Present: normal inspection. Absent: tenderness, meningismus, lymphadenopathy Respiratory exam: Present: normal lung sounds bilaterally. Absent: respiratory distress, wheezes, rales, rhonchi, stridor Cardiovascular Exam: Present: regular rate, normal rhythm, normal heart sounds. Absent: systolic murmur, diastolic murmur, rubs, gallop, clicks GI/Abdominal exam: Present: soft, tenderness (Generalized right-sided abdominal tenderness.) Neurological exam: Present: alert Course Vital Signs 02/10/20 02/10/20 10:34 14:32 Temperature 99.1 F 98.8 F Pulse Rate 98 80 Respiratory 18 18 Rate Blood Pressure 123/76 108/72 O2 Sat by Pulse 100 98 Oximetry - Reevaluation(s) Reevaluation #1: 02/10/20 12:37 Delay in care when lab did not receive or run hCG with urinalysis. Second delay in care when there were 2 code strokes in a row. Medical Decision Making - Medical Decision Making Patient presents for very several vague complaints. On it abdominal exam she does have right lower quadrant and right upper quadrant abdominal tenderness. Physical exam is otherwise generally unremarkable and vitals are stable without evidence of fever. CBC CMP unremarkable. Urinalysis unremarkable. CT abdomen and pelvis shows borderline to mildly enlarged right lower quadrant lymph nodes. Normal appendix. White count is normal. At this time given diarrhea and abdominal pain this is consistent with mesenteric adenitis. Recommend she follow up with her doctor and return here for any worsening symptoms. I discussed this case with attending Dr. Sandoval who agrees with this assessment and treatment plan. - Lab Data Result diagrams: 02/10/20 11:10 02/10/20 11:10 Lab Results 02/10/20 02/10/20 02/10/20 Range/Units 11:10 11:10 11:10 WBC 10.5 (3.8-10.6) k/uL RBC 4.73 (3.80-5.40) m/uL Hgb 12.9 (11.4-16.0) gm/dL Hct 39.1 (34.0-46.0) % MCV 82.6 (80.0-100.0) fL MCH 27.3 (25.0-35.0) pg MCHC 33.0 (31.0-37.0) g/dL RDW 14.3 (11.5-15.5) % Plt Count 292 (150-450) k/uL MPV 7.4 Neutrophils % 65 % Lymphocytes % 28 % Monocytes % 3 % Eosinophils % 2 % Basophils % 0 % Neutrophils # 6.9 (1.3-7.7) k/uL Lymphocytes # 3.0 (1.0-4.8) k/uL Monocytes # 0.4 (0-1.0) k/uL Eosinophils # 0.2 (0-0.7) k/uL Basophils # 0.0 (0-0.2) k/uL Sodium (137-145) mmol/L Potassium (3.5-5.1) mmol/L Chloride (98-107) mmol/L Carbon Dioxide (22-30) mmol/L Anion Gap mmol/L BUN (7-17) mg/dL Creatinine (0.52-1.04) mg/dL Est GFR (CKD-EPI)AfAm (>60 ml/min/1.73 sqM) Est GFR (CKD-EPI)NonAf (>60 ml/min/1.73 sqM) Glucose (74-99) mg/dL Calcium (8.4-10.2) mg/dL Total Bilirubin (0.2-1.3) mg/dL AST (14-36) U/L ALT (4-34) U/L Alkaline Phosphatase (38-126) U/L Total Protein (6.3-8.2) g/dL Albumin (3.5-5.0) g/dL Amylase (30-110) U/L Lipase (23-300) U/L Urine Color Yellow Urine Appearance Cloudy H (Clear) Urine pH 7.0 (5.0-8.0) Ur Specific [place] 1.020 (1.001-1.035) Urine Protein Negative (Negative) Urine Glucose (UA) Negative (Negative) Urine Ketones Negative (Negative) Urine Blood Negative (Negative) Urine Nitrite Negative (Negative) Urine Bilirubin Negative (Negative) Urine Urobilinogen <2.0 (<2.0) mg/dL Ur Leukocyte Esterase Negative (Negative) Urine RBC <1 (0-5) /hpf Urine WBC 1 (0-5) /hpf Ur Squamous Epith Cells 9 H (0-4) /hpf Urine Bacteria Rare H (None) /hpf Urine Mucus Occasional H (None) /hpf Urine HCG, Qual Not Detected (Not Detectd) Coronavirus (PCR) (Not Detectd) 02/10/20 02/10/20 Range/Units 11:10 11:10 WBC (3.8-10.6) k/uL RBC (3.80-5.40) m/uL Hgb (11.4-16.0) gm/dL Hct (34.0-46.0) % MCV (80.0-100.0) fL MCH (25.0-35.0) pg MCHC (31.0-37.0) g/dL RDW (11.5-15.5) % Plt Count (150-450) k/uL MPV Neutrophils % % Lymphocytes % % Monocytes % % Eosinophils % % Basophils % % Neutrophils # (1.3-7.7) k/uL Lymphocytes # (1.0-4.8) k/uL Monocytes # (0-1.0) k/uL Eosinophils # (0-0.7) k/uL Basophils # (0-0.2) k/uL Sodium 137 (137-145) mmol/L Potassium 4.1 (3.5-5.1) mmol/L Chloride 103 (98-107) mmol/L Carbon Dioxide 30 (22-30) mmol/L Anion Gap 4 mmol/L BUN 12 (7-17) mg/dL Creatinine 0.75 (0.52-1.04) mg/dL Est GFR (CKD-EPI)AfAm >90 (>60 ml/min/1.73 sqM) Est GFR (CKD-EPI)NonAf >90 (>60 ml/min/1.73 sqM) Glucose 115 H (74-99) mg/dL Calcium 9.7 (8.4-10.2) mg/dL Total Bilirubin 0.7 (0.2-1.3) mg/dL AST 28 (14-36) U/L ALT 26 (4-34) U/L Alkaline Phosphatase 48 (38-126) U/L Total Protein 7.1 (6.3-8.2) g/dL Albumin 4.1 (3.5-5.0) g/dL Amylase 40 (30-110) U/L Lipase 150 (23-300) U/L Urine Color Urine Appearance (Clear) Urine pH (5.0-8.0) Ur Specific [place] (1.001-1.035) Urine Protein (Negative) Urine Glucose (UA) (Negative) Urine Ketones (Negative) Urine Blood (Negative) Urine Nitrite (Negative) Urine Bilirubin (Negative) Urine Urobilinogen (<2.0) mg/dL Ur Leukocyte Esterase (Negative) Urine RBC (0-5) /hpf Urine WBC (0-5) /hpf Ur Squamous Epith Cells (0-4) /hpf Urine Bacteria (None) /hpf Urine Mucus (None) /hpf Urine HCG, Qual (Not Detectd) Coronavirus (PCR) Not Detected (Not Detectd) Disposition Clinical Impression: Abdominal pain, Diarrhea, Mesenteric adenitis Disposition: HOME SELF-CARE Condition: Good Instructions (If sedation given, give patient instructions): Mesenteric Adenitis (ED) Additional Instructions: Please take Motrin and Tylenol for pain and fever. Drink plenty of fluids. Follow-up with your doctor in one to 2 days. Return to the emergency room for any worsening symptoms. Is patient prescribed a controlled substance at d/c from ED?: No Referrals: Michael Winkler MD [Primary Care Provider] - 1-2 days Time of Disposition: 14:52
[2020-02-10] MEDS ORDERED: ONDANSETRON 4 MG/2 ML VIAL IVP STA (11:16)
[2020-02-10 11:25] LABS: Basophils % (A) 0 %; Eosinophils # (A) 0.2 k/uL (0-0.7); Eosinophils % (A) 2 %; HCT 39.1 % (34.0-46.0); HGB 12.9 gm/dL (11.4-16.0); Lymphocytes % (A) 28 %; MCH 27.3 pg (25.0-35.0); MCV 82.6 fL (80.0-100.0); Mean Platelet Volume 7.4; Monocytes # (A) 0.4 k/uL (0-1.0); Monocytes % (A) 3 %; Neutrophils # (A) 6.9 k/uL (1.3-7.7); Neutrophils % (A) 65 %; Platelet Count 292 k/uL (150-450); RBC 4.73 m/uL (3.80-5.40); RDW 14.3 % (11.5-15.5); WBC 10.5 k/uL (3.8-10.6)
[2020-02-10 11:33] LABS: ALT 26 U/L (4-34); AST 28 U/L (14-36); African American GFR (CKD) >90 (>60 ml/min/1.73 sqM); Albumin 4.1 g/dL (3.5-5.0); Alkaline Phosphatase 48 U/L (38-126); Amylase 40 U/L (30-110); Anion Gap 4 mmol/L; Blood Urea Nitrogen 12 mg/dL (7-17); Calcium 9.7 mg/dL (8.4-10.2); Carbon Dioxide 30 mmol/L (22-30); Chloride 103 mmol/L (98-107); Glucose 115 mg/dL (74-99); Lipase 150 U/L (23-300); Non-African American GFR(CKD) >90 (>60 ml/min/1.73 sqM); Potassium 4.1 mmol/L (3.5-5.1); Sodium 137 mmol/L (137-145); Total Bilirubin 0.7 mg/dL (0.2-1.3); Total Protein 7.1 g/dL (6.3-8.2)
[2020-02-10 11:34] LABS: Appearance,Urine Cloudy (Clear); Bacteria,Urine Rare /hpf; Bilirubin,Urine Negative (Negative); Blood,Urine Negative (Negative); Color,Urine Yellow; Glucose,Urine (UA) Negative (Negative); Ketones,Urine Negative (Negative); Leukocyte Esterase,Urine Negative (Negative); Mucus,Urine Occasional /hpf; Nitrite,Urine Negative (Negative); Protein,Urine Negative (Negative); RBC,Urine <1 /hpf (0-5); Squamous Epithelial Cell,Urine 9 /hpf (0-4); Urobilinogen,Urine <2.0 mg/dL (<2.0); WBC,Urine 1 /hpf (0-5)
[2020-02-10] MEDS ORDERED: MORPHINE SULFATE 4 MG/ML SYRINGE IVP STA (12:12)
--- NOTE | 2020-02-10 14:20 | CT ---
EXAMINATION TYPE: CT abdomen pelvis w con DATE OF EXAM: 02/10/2020 COMPARISON: NONE HISTORY: 24-year-old female Abdominal pain, diarrhea, fever. TECHNIQUE: Contiguous axial scanning of the abdomen and pelvis following administration of 100 ml Iso baljit 300 IV contrast. Delayed images through the kidneys and coronal/sagittal reconstructions perform ed. CT DLP: 1749.5 mGycm Automated exposure control for dose reduction was used. FINDINGS: Heart normal size without pericardial effusion. Some strandy atelectasis at the left base. No pleural effusion. Liver enlarged measuring 21.0 cm with low attenuation. No focal liver lesion. Portal venous system is patent. No biliary ductal dilatation. Gallbladder, adrenal glands, kidneys, spleen, pancreas within normal limits. No dilated small bowel, free fluid, or free air. A couple borderline to mildly enlarged right lower quadrant mesenteric lymph nodes measuring up to 1. 0 cm (axial image 52). Otherwise, no mesenteric or retroperitoneal lymphadenopathy. Normal appendix. Mild scattered stool burden. No pericolonic inflammatory change. Prominent distention of the urinary bladder up to 14.9 cm. Uterus is inverted. Follicular change in both ovaries. No abnormal fluid collection in the pelvis or pelvic lymphadenopathy. Bones: No osseous destructive process. IMPRESSION: 1. COUPLE BORDERLINE TO MILDLY ENLARGED RIGHT LOWER QUADRANT MESENTERIC LYMPH NODES MEASURING UP TO 1 .0 CM. FINDINGS NONSPECIFIC. CONSIDER A MILD MESENTERIC ADENITIS. 2. 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
[2020-02-10 14:33] VITALS: BP 108/72; PULSE 80; TEMP 98.8
== END 2020-02-10 15:00 | disposition home or self-care (01) ==
LOC: EC 10:24
DX: I88.0 Nonspecific mesenteric lymphadenitis (principal); Z20.822 Contact with and (suspected) exposure to COVID-19; R50.9 Fever, unspecified; R06.02 Shortness of breath
CPT/HCPCS: 99285; 96374; 96375; 96361; 36415; 80053; 82150; 83690; 85025; 81001; 81025; 87635; 74177; J2270; J2405; Q9967

== ENCOUNTER 2020-03-30 15:58 | Emergency (ER) | payer BC, OTHER ==
[2020-03-30] MEDS ORDERED: ONDANSETRON 4 MG/2 ML VIAL IVP STA (16:25)
[2020-03-30] MEDS ORDERED: SODIUM CHLORIDE 0.9% 1,000 ML IV STA (16:25)
--- NOTE | 2020-03-30 16:30 | ED ---
General Adult HPI - General Chief complaint: Dizziness Stated complaint: syncope Time Seen by Provider: 03/30/20 16:20 Source: patient, RN notes reviewed Limitations: altered mental status - History of Present Illness Initial comments: Patient is a 24-year-old female presents to emergency department complaining of lightheadedness and fainting while donating plasma today. Nurse did note that patient has been going in and out with painful stimuli such as needlesticks. Nurse did note that patient reported that she smoked marijuana this morning that she got from a medical marijuana store. Patient denied any previous episodes or history of fainting, lightheadedness, dizziness. Patient was very poor historian had difficulty answering questions or giving direct answers. He denied taking any new medications or substances. She denied any chest pain shortness of breath headache nausea vomiting diarrhea constipation fever fatigue chills. - Related Data Home Medications Medication Instructions Recorded Confirmed No Known Home Medications 02/10/20 03/30/20 Allergies Allergy/AdvReac Type Severity Reaction Status Date / Time No Known Allergies Allergy Verified 03/30/20 17:16 Review of Systems ROS Statement: Those systems with pertinent positive or pertinent negative responses have been documented in the HPI. ROS Other: All systems not noted in ROS Statement are negative. Past Medical History Past Medical History: Thyroid Disorder History of Any Multi-Drug Resistant Organisms: None Reported Past Surgical History: No Surgical Hx Reported Past Psychological History: Anxiety Smoking Status: Never smoker Past Alcohol Use History: None Reported Past Drug Use History: Marijuana General Exam General appearance: in no apparent distress, lethargic, obese Head exam: Present: atraumatic, normocephalic, normal inspection Eye exam: Present: normal appearance, PERRL, EOMI. Absent: scleral icterus, conjunctival injection, periorbital swelling ENT exam: Present: normal exam, mucous membranes moist Neck exam: Present: normal inspection. Absent: tenderness, meningismus, lymphadenopathy Respiratory exam: Present: normal lung sounds bilaterally. Absent: respiratory distress, wheezes, rales, rhonchi, stridor Cardiovascular Exam: Present: regular rate, normal rhythm, normal heart sounds. Absent: systolic murmur, diastolic murmur, rubs, gallop, clicks GI/Abdominal exam: Present: soft, normal bowel sounds. Absent: distended, tenderness, guarding, rebound, rigid Extremities exam: Present: normal inspection, full ROM, normal capillary refill. Absent: tenderness, pedal edema, joint swelling, calf tenderness Back exam: Present: normal inspection Neurological exam: Present: alert, oriented X3, CN II-XII intact Psychiatric exam: Present: normal mood, flat affect Skin exam: Present: warm, dry, intact, normal color. Absent: rash Course Vital Signs 03/30/20 16:10 Temperature 98.0 F Pulse Rate 87 Respiratory 16 Rate Blood Pressure 129/91 O2 Sat by Pulse 99 Oximetry EKG Findings - EKG Comments: EKG Findings:: Ventricular rate 87 bpm, WA interval 136 ms, QRS duration 66 ms, QT/QTC 364/4:30, PRT axes 25/55/28. Normal sinus rhythm, normal ECG Medical Decision Making - Medical Decision Making 24-year-old female complaining of lightheadedness and fainting while doing plasma. Labs, 1 L normal saline, 4 mg Zofran, EKG, clinical research monitor ordered. Labs unremarkable Case discussed with Dr. Markham, was decided the patient to discharge home. - Lab Data Result diagrams: 03/30/20 16:39 03/30/20 16:39 Lab Results 03/30/20 03/30/20 03/30/20 Range/Units 16:39 16:39 16:39 WBC 13.6 H (3.8-10.6) k/uL RBC 5.57 H (3.80-5.40) m/uL Hgb 15.8 (11.4-16.0) gm/dL Hct 45.7 (34.0-46.0) % MCV 81.9 (80.0-100.0) fL MCH 28.4 (25.0-35.0) pg MCHC 34.6 (31.0-37.0) g/dL RDW 14.0 (11.5-15.5) % Plt Count 279 (150-450) k/uL MPV 7.6 Neutrophils % 72 % Lymphocytes % 22 % Monocytes % 3 % Eosinophils % 1 % Basophils % 0 % Neutrophils # 9.7 H (1.3-7.7) k/uL Lymphocytes # 3.0 (1.0-4.8) k/uL Monocytes # 0.4 (0-1.0) k/uL Eosinophils # 0.2 (0-0.7) k/uL Basophils # 0.1 (0-0.2) k/uL Sodium 138 (137-145) mmol/L Potassium 4.3 (3.5-5.1) mmol/L Chloride 106 (98-107) mmol/L Carbon Dioxide 23 (22-30) mmol/L Anion Gap 9 mmol/L BUN 12 (7-17) mg/dL Creatinine 0.72 (0.52-1.04) mg/dL Est GFR (CKD-EPI)AfAm >90 (>60 ml/min/1.73 sqM) Est GFR (CKD-EPI)NonAf >90 (>60 ml/min/1.73 sqM) Glucose 92 (74-99) mg/dL Calcium 9.7 (8.4-10.2) mg/dL Total Bilirubin 0.6 (0.2-1.3) mg/dL AST 28 (14-36) U/L ALT 22 (4-34) U/L Alkaline Phosphatase 49 (38-126) U/L Total Protein 7.4 (6.3-8.2) g/dL Albumin 4.3 (3.5-5.0) g/dL Urine Color Light Yellow Urine Appearance Clear (Clear) Urine pH 7.0 (5.0-8.0) Ur Specific [place] 1.012 (1.001-1.035) Urine Protein Negative (Negative) Urine Glucose (UA) Negative (Negative) Urine Ketones Negative (Negative) Urine Blood Trace H (Negative) Urine Nitrite Negative (Negative) Urine Bilirubin Negative (Negative) Urine Urobilinogen <2.0 (<2.0) mg/dL Ur Leukocyte Esterase Negative (Negative) Urine WBC <1 (0-5) /hpf Ur Squamous Epith Cells <1 (0-4) /hpf Urine Mucus Rare H (None) /hpf Urine Opiates Screen Not Detected (NotDetected) Ur Oxycodone Screen Not Detected (NotDetected) Urine Methadone Screen Not Detected (NotDetected) Ur Propoxyphene Screen Not Detected (NotDetected) Ur Barbiturates Screen Not Detected (NotDetected) U Tricyclic Antidepress Not Detected (NotDetected) Ur Phencyclidine Scrn Not Detected (NotDetected) Ur Amphetamines Screen Not Detected (NotDetected) U Methamphetamines Scrn Not Detected (NotDetected) U Benzodiazepines Scrn Not Detected (NotDetected) Urine Cocaine Screen Not Detected (NotDetected) U Marijuana (THC) Screen Detected H (NotDetected) - EKG Data -: EKG Interpreted by Me EKG shows normal: sinus rhythm Rate: normal EKG Comments: Ventricular rate 87 bpm, WA interval 136 ms, QRS duration 66 ms, QT/QTC 364/4:30, PRT axes 25/55/28. Normal sinus rhythm, normal ECG Disposition Clinical Impression: Vasovagal syncope, Dehydration Disposition: HOME SELF-CARE Condition: Stable Instructions (If sedation given, give patient instructions): Dizziness (ED) Additional Instructions: Please return to the Emergency Department if symptoms worsen or any other concerns. Do not donate plasma anymore due to vasovagal response and risk of dehydration. Follow-up primary care 1-2 days. Increase oral fluid intake. Is patient prescribed a controlled substance at d/c from ED?: No Referrals: Michael Winkler MD [Primary Care Provider] - 1-2 days Time of Disposition: 17:19
[2020-03-30 16:46] LABS: Basophils # (A) 0.1 k/uL (0-0.2); Basophils % (A) 0 %; Eosinophils # (A) 0.2 k/uL (0-0.7); Eosinophils % (A) 1 %; HCT 45.7 % (34.0-46.0); HGB 15.8 gm/dL (11.4-16.0); Lymphocytes % (A) 22 %; MCH 28.4 pg (25.0-35.0); MCHC 34.6 g/dL (31.0-37.0); MCV 81.9 fL (80.0-100.0); Mean Platelet Volume 7.6; Monocytes # (A) 0.4 k/uL (0-1.0); Monocytes % (A) 3 %; Neutrophils # (A) 9.7 k/uL (1.3-7.7); Neutrophils % (A) 72 %; Platelet Count 279 k/uL (150-450); RBC 5.57 m/uL (3.80-5.40); WBC 13.6 k/uL (3.8-10.6)
[2020-03-30 16:55] LABS: ALT 22 U/L (4-34); AST 28 U/L (14-36); African American GFR (CKD) >90 (>60 ml/min/1.73 sqM); Albumin 4.3 g/dL (3.5-5.0); Alkaline Phosphatase 49 U/L (38-126); Anion Gap 9 mmol/L; Blood Urea Nitrogen 12 mg/dL (7-17); Calcium 9.7 mg/dL (8.4-10.2); Carbon Dioxide 23 mmol/L (22-30); Chloride 106 mmol/L (98-107); Glucose 92 mg/dL (74-99); Non-African American GFR(CKD) >90 (>60 ml/min/1.73 sqM); Potassium 4.3 mmol/L (3.5-5.1); Sodium 138 mmol/L (137-145); Total Bilirubin 0.6 mg/dL (0.2-1.3); Total Protein 7.4 g/dL (6.3-8.2)
[2020-03-30 17:01] LABS: Appearance,Urine Clear (Clear); Bilirubin,Urine Negative (Negative); Blood,Urine Trace (Negative); Color,Urine Light Yellow; Glucose,Urine (UA) Negative (Negative); Ketones,Urine Negative (Negative); Leukocyte Esterase,Urine Negative (Negative); Mucus,Urine Rare /hpf; Nitrite,Urine Negative (Negative); Protein,Urine Negative (Negative); Specific Gravity,Urine 1.012 (1.001-1.035); Squamous Epithelial Cell,Urine <1 /hpf (0-4); Urobilinogen,Urine <2.0 mg/dL (<2.0); WBC,Urine <1 /hpf (0-5)
[2020-03-30 17:09] LABS: Amphetamine Screen,Urine Not Detected (NotDetected); Barbiturate Screen,Urine Not Detected (NotDetected); Benzodiazepines Screen,Urine Not Detected (NotDetected); Cocaine Screen,Urine Not Detected (NotDetected); Methadone Screen, Urine Not Detected (NotDetected); Opiate Screen,Urine Not Detected (NotDetected); Oxycodone Screen, Urine Not Detected (NotDetected); Phencyclidine Screen,Urine Not Detected (NotDetected); Tricyclic Antidepressant,Urine Not Detected (NotDetected); Urn Cannabinoid Scrn Detected (NotDetected)
[2020-03-30 17:50] VITALS: BP 133/88; PULSE 99; RESP 18; TEMP 97.9
== END 2020-03-30 17:50 | disposition home or self-care (01) ==
LOC: EC 15:58
DX: E86.0 Dehydration (principal); R55 Syncope and collapse
CPT/HCPCS: 36415; 80053; 80306; 81001; 85025; 93005; 99284

== ENCOUNTER 2020-03-31 12:39 | Emergency (ER) | payer BC, OTHER ==
[2020-03-31 12:44] VITALS: RESP 18
[2020-03-31 12:51] LABS: Glucose,Whole Blood 114 mg/dL (75-99)
[2020-03-31] MEDS ORDERED: SODIUM CHLORIDE 0.9% 1,000 ML IV STA (13:29)
[2020-03-31] MEDS ORDERED: LORazepam 2 MG/ML INJ IV STA (13:31)
[2020-03-31 13:54] LABS: Basophils % (A) 0 %; Eosinophils # (A) 0.1 k/uL (0-0.7); Eosinophils % (A) 1 %; HCT 40.3 % (34.0-46.0); HGB 13.7 gm/dL (11.4-16.0); Lymphocytes % (A) 32 %; MCH 27.7 pg (25.0-35.0); MCHC 33.9 g/dL (31.0-37.0); MCV 81.8 fL (80.0-100.0); Mean Platelet Volume 7.7; Monocytes # (A) 0.4 k/uL (0-1.0); Monocytes % (A) 4 %; Neutrophils # (A) 5.8 k/uL (1.3-7.7); Neutrophils % (A) 61 %; Platelet Count 301 k/uL (150-450); RBC 4.93 m/uL (3.80-5.40); WBC 9.6 k/uL (3.8-10.6)
[2020-03-31 14:05] LABS: Partial Thromboplastin Time 22.8 sec (22.0-30.0); Prothrombin Time 10.3 sec (9.0-12.0)
[2020-03-31 14:10] LABS: Potassium 4.3 mmol/L (3.5-5.1)
[2020-03-31 14:11] LABS: ALT 21 U/L (4-34); AST 26 U/L (14-36); African American GFR (CKD) >90 (>60 ml/min/1.73 sqM); Albumin 3.9 g/dL (3.5-5.0); Alcohol <10 mg/dL; Alkaline Phosphatase 46 U/L (38-126); Anion Gap 10 mmol/L; Blood Urea Nitrogen 13 mg/dL (7-17); Calcium 9.6 mg/dL (8.4-10.2); Carbon Dioxide 22 mmol/L (22-30); Chloride 106 mmol/L (98-107); Glucose 102 mg/dL (74-99); Non-African American GFR(CKD) >90 (>60 ml/min/1.73 sqM); Sodium 138 mmol/L (137-145); Total Bilirubin 0.6 mg/dL (0.2-1.3); Total Protein 6.8 g/dL (6.3-8.2)
[2020-03-31 14:44] LABS: Appearance,Urine Cloudy (Clear); Bilirubin,Urine Negative (Negative); Blood,Urine Negative (Negative); Color,Urine Yellow; Glucose,Urine (UA) Negative (Negative); Ketones,Urine Negative (Negative); Leukocyte Esterase,Urine Negative (Negative); Mucus,Urine Occasional /hpf; Nitrite,Urine Negative (Negative); PH, Urine 7.5 (5.0-8.0); Protein,Urine Negative (Negative); RBC,Urine 1 /hpf (0-5); Specific Gravity,Urine 1.022 (1.001-1.035); Squamous Epithelial Cell,Urine 1 /hpf (0-4); Urobilinogen,Urine <2.0 mg/dL (<2.0); WBC,Urine 2 /hpf (0-5)
--- NOTE | 2020-03-31 15:16 | CT ---
EXAMINATION TYPE: CT brain wo con DATE OF EXAM: 03/31/2020 COMPARISON: None HISTORY: repeated syncope CT DLP: 1099.4 mGycm. Automated Exposure Control for Dose Reduction was Utilized. TECHNIQUE: CT scan of the head is performed without contrast. FINDINGS: There is no acute intracranial hemorrhage, mass effect, or midline shift identified. The ventricles and sulci are within normal limits in size. The globes are intact. Low-lying cerebellar tonsils. Changes of mild chronic sinusitis. IMPRESSION: 1. No acute intracranial hemorrhage, mass effect, or midline shift is seen. 2. Low-lying cerebellar tonsils. Follow-up MRI could be obtained to assess for Chiari malformation.
--- NOTE | 2020-03-31 15:28 | ED ---
General Adult HPI - General Chief complaint: Syncope Stated complaint: Syncopal Episodes Time Seen by Provider: 03/31/20 13:02 Source: EMS, RN notes reviewed Mode of arrival: EMS Limitations: altered mental status - History of Present Illness Initial comments: 24-year-old female presents to the emergency room for a chief complaint of "passing out." patient had a syncopal episode yesterday while getting blood drawn. Patient states that she had another one this morning and apparently hit her head. When she saw her doctor she was told to come to the ER because she had her head and needed a CAT scan. Patient states she has been having them on and off throughout the day and feels shaky. Patient denies any medical problems. Denies nausea vomiting. Patient denies visual changes or weakness.Patient has no other complaints at this time including shortness of breath, chest pain, abdominal pain, nausea or vomiting, headache, or visual changes. - Related Data Home Medications Medication Instructions Recorded Confirmed No Known Home Medications 02/10/20 03/30/20 Allergies Allergy/AdvReac Type Severity Reaction Status Date / Time No Known Allergies Allergy Verified 03/31/20 12:45 Review of Systems ROS Statement: Those systems with pertinent positive or pertinent negative responses have been documented in the HPI. ROS Other: All systems not noted in ROS Statement are negative. Past Medical History Past Medical History: Thyroid Disorder History of Any Multi-Drug Resistant Organisms: None Reported Past Surgical History: Section Past Psychological History: Anxiety Smoking Status: Never smoker Past Alcohol Use History: None Reported, Occasional Past Drug Use History: Marijuana General Exam Limitations: altered mental status General appearance: alert, in no apparent distress Head exam: Present: atraumatic, normocephalic, normal inspection Eye exam: Present: normal appearance, PERRL, EOMI. Absent: scleral icterus, conjunctival injection, periorbital swelling ENT exam: Present: normal exam, mucous membranes moist Neck exam: Present: normal inspection, full ROM. Absent: tenderness Respiratory exam: Present: normal lung sounds bilaterally. Absent: respiratory distress, wheezes Cardiovascular Exam: Present: regular rate, normal rhythm, normal heart sounds GI/Abdominal exam: Present: soft, normal bowel sounds. Absent: distended, tenderness, guarding, rebound, rigid Neurological exam: Present: alert, oriented X3 Course Vital Signs 03/31/20 03/31/20 03/31/20 12:41 14:20 15:24 Temperature 98.9 F 98.6 F Pulse Rate 95 84 82 Respiratory 18 18 18 Rate Blood Pressure 124/59 119/76 110/55 O2 Sat by Pulse 99 98 98 Oximetry Medical Decision Making - Medical Decision Making Vitals are stable. Physical exam unremarkable. No focal neurologic deficits. Patient ambulatory to the bathroom. CBC CMP unremarkable. CT brain shows no acute cranial hemorrhage, mass effect, or midline shift. Low-lying cerebellar tonsils, patient will follow-up with this. Patient had a positive marijuana UDS yesterday, got this from a medical marijuana store. I did witness patient's "syncopal" episode that she is describing. Patient was talking and then suddenly close her eyes. However as soon as I applied chest pressure for sternal rub she immediately started talking. She states that she can hear everything through these episodes. They're not consistent with seizures or true syncopal episodes. At this time recommend that she follow up with primary care. She'll return for any worsening symptoms. - Lab Data Result diagrams: 03/31/20 13:40 03/31/20 13:40 Lab Results 03/31/20 03/31/20 03/31/20 Range/Units 12:49 13:40 13:40 WBC 9.6 (3.8-10.6) k/uL RBC 4.93 (3.80-5.40) m/uL Hgb 13.7 (11.4-16.0) gm/dL Hct 40.3 (34.0-46.0) % MCV 81.8 (80.0-100.0) fL MCH 27.7 (25.0-35.0) pg MCHC 33.9 (31.0-37.0) g/dL RDW 14.0 (11.5-15.5) % Plt Count 301 (150-450) k/uL MPV 7.7 Neutrophils % 61 % Lymphocytes % 32 % Monocytes % 4 % Eosinophils % 1 % Basophils % 0 % Neutrophils # 5.8 (1.3-7.7) k/uL Lymphocytes # 3.0 (1.0-4.8) k/uL Monocytes # 0.4 (0-1.0) k/uL Eosinophils # 0.1 (0-0.7) k/uL Basophils # 0.0 (0-0.2) k/uL PT 10.3 (9.0-12.0) sec INR 1.0 (<1.2) APTT 22.8 (22.0-30.0) sec Sodium (137-145) mmol/L Potassium (3.5-5.1) mmol/L Chloride (98-107) mmol/L Carbon Dioxide (22-30) mmol/L Anion Gap mmol/L BUN (7-17) mg/dL Creatinine (0.52-1.04) mg/dL Est GFR (CKD-EPI)AfAm (>60 ml/min/1.73 sqM) Est GFR (CKD-EPI)NonAf (>60 ml/min/1.73 sqM) Glucose (74-99) mg/dL POC Glucose (mg/dL) 114 H (75-99) mg/dL POC Glu Banjo Repairer ID Namrata Joyner Calcium (8.4-10.2) mg/dL Total Bilirubin (0.2-1.3) mg/dL AST (14-36) U/L ALT (4-34) U/L Alkaline Phosphatase (38-126) U/L Troponin I (0.000-0.034) ng/mL Total Protein (6.3-8.2) g/dL Albumin (3.5-5.0) g/dL Urine Color Urine Appearance (Clear) Urine pH (5.0-8.0) Ur Specific [place] (1.001-1.035) Urine Protein (Negative) Urine Glucose (UA) (Negative) Urine Ketones (Negative) Urine Blood (Negative) Urine Nitrite (Negative) Urine Bilirubin (Negative) Urine Urobilinogen (<2.0) mg/dL Ur Leukocyte Esterase (Negative) Urine RBC (0-5) /hpf Urine WBC (0-5) /hpf Ur Squamous Epith Cells (0-4) /hpf Urine Mucus (None) /hpf Urine HCG, Qual (Not Detectd) Serum Alcohol mg/dL 03/31/20 03/31/20 03/31/20 Range/Units 13:40 13:40 14:19 WBC (3.8-10.6) k/uL RBC (3.80-5.40) m/uL Hgb (11.4-16.0) gm/dL Hct (34.0-46.0) % MCV (80.0-100.0) fL MCH (25.0-35.0) pg MCHC (31.0-37.0) g/dL RDW (11.5-15.5) % Plt Count (150-450) k/uL MPV Neutrophils % % Lymphocytes % % Monocytes % % Eosinophils % % Basophils % % Neutrophils # (1.3-7.7) k/uL Lymphocytes # (1.0-4.8) k/uL Monocytes # (0-1.0) k/uL Eosinophils # (0-0.7) k/uL Basophils # (0-0.2) k/uL PT (9.0-12.0) sec INR (<1.2) APTT (22.0-30.0) sec Sodium 138 (137-145) mmol/L Potassium 4.3 (3.5-5.1) mmol/L Chloride 106 (98-107) mmol/L Carbon Dioxide 22 (22-30) mmol/L Anion Gap 10 mmol/L BUN 13 (7-17) mg/dL Creatinine 0.71 (0.52-1.04) mg/dL Est GFR (CKD-EPI)AfAm >90 (>60 ml/min/1.73 sqM) Est GFR (CKD-EPI)NonAf >90 (>60 ml/min/1.73 sqM) Glucose 102 H (74-99) mg/dL POC Glucose (mg/dL) (75-99) mg/dL POC Glu Banjo Repairer ID Calcium 9.6 (8.4-10.2) mg/dL Total Bilirubin 0.6 (0.2-1.3) mg/dL AST 26 (14-36) U/L ALT 21 (4-34) U/L Alkaline Phosphatase 46 (38-126) U/L Troponin I <0.012 (0.000-0.034) ng/mL Total Protein 6.8 (6.3-8.2) g/dL Albumin 3.9 (3.5-5.0) g/dL Urine Color Yellow Urine Appearance Cloudy H (Clear) Urine pH 7.5 (5.0-8.0) Ur Specific [place] 1.022 (1.001-1.035) Urine Protein Negative (Negative) Urine Glucose (UA) Negative (Negative) Urine Ketones Negative (Negative) Urine Blood Negative (Negative) Urine Nitrite Negative (Negative) Urine Bilirubin Negative (Negative) Urine Urobilinogen <2.0 (<2.0) mg/dL Ur Leukocyte Esterase Negative (Negative) Urine RBC 1 (0-5) /hpf Urine WBC 2 (0-5) /hpf Ur Squamous Epith Cells 1 (0-4) /hpf Urine Mucus Occasional H (None) /hpf Urine HCG, Qual (Not Detectd) Serum Alcohol <10 mg/dL 03/31/20 Range/Units 14:19 WBC (3.8-10.6) k/uL RBC (3.80-5.40) m/uL Hgb (11.4-16.0) gm/dL Hct (34.0-46.0) % MCV (80.0-100.0) fL MCH (25.0-35.0) pg MCHC (31.0-37.0) g/dL RDW (11.5-15.5) % Plt Count (150-450) k/uL MPV Neutrophils % % Lymphocytes % % Monocytes % % Eosinophils % % Basophils % % Neutrophils # (1.3-7.7) k/uL Lymphocytes # (1.0-4.8) k/uL Monocytes # (0-1.0) k/uL Eosinophils # (0-0.7) k/uL Basophils # (0-0.2) k/uL PT (9.0-12.0) sec INR (<1.2) APTT (22.0-30.0) sec Sodium (137-145) mmol/L Potassium (3.5-5.1) mmol/L Chloride (98-107) mmol/L Carbon Dioxide (22-30) mmol/L Anion Gap mmol/L BUN (7-17) mg/dL Creatinine (0.52-1.04) mg/dL Est GFR (CKD-EPI)AfAm (>60 ml/min/1.73 sqM) Est GFR (CKD-EPI)NonAf (>60 ml/min/1.73 sqM) Glucose (74-99) mg/dL POC Glucose (mg/dL) (75-99) mg/dL POC Glu Banjo Repairer ID Calcium (8.4-10.2) mg/dL Total Bilirubin (0.2-1.3) mg/dL AST (14-36) U/L ALT (4-34) U/L Alkaline Phosphatase (38-126) U/L Troponin I (0.000-0.034) ng/mL Total Protein (6.3-8.2) g/dL Albumin (3.5-5.0) g/dL Urine Color Urine Appearance (Clear) Urine pH (5.0-8.0) Ur Specific [place] (1.001-1.035) Urine Protein (Negative) Urine Glucose (UA) (Negative) Urine Ketones (Negative) Urine Blood (Negative) Urine Nitrite (Negative) Urine Bilirubin (Negative) Urine Urobilinogen (<2.0) mg/dL Ur Leukocyte Esterase (Negative) Urine RBC (0-5) /hpf Urine WBC (0-5) /hpf Ur Squamous Epith Cells (0-4) /hpf Urine Mucus (None) /hpf Urine HCG, Qual Not Detected (Not Detectd) Serum Alcohol mg/dL Disposition Clinical Impression: Fainting spell Disposition: HOME SELF-CARE Condition: Good Instructions (If sedation given, give patient instructions): Syncope (ED) Additional Instructions: Please follow up with your primary care provider soon as possible. Return to the emergency room for any worsening symptoms. Is patient prescribed a controlled substance at d/c from ED?: No Referrals: Michael Winkler MD [Primary Care Provider] - 1-2 days Time of Disposition: 16:03
[2020-03-31 16:22] VITALS: BP 107/70; PULSE 92; TEMP 98.1
== END 2020-03-31 16:22 | disposition home or self-care (01) ==
LOC: EC 12:39
DX: R55 Syncope and collapse (principal)
CPT/HCPCS: 36415; 93005; 80053; 84484; 85025; 85610; 85730; 81001; 81025; 80320; 70450; 99284; 96374; 96361; J2060

== ENCOUNTER 2020-05-26 18:51 | Emergency (ER) | payer BC, OTHER ==
--- NOTE | 2020-05-26 19:03 | ED ---
General Adult HPI - General Source: patient, RN notes reviewed Mode of arrival: ambulatory Limitations: no limitations <Paulo Landis - Last Filed: 05/26/20 19:02> <Analia Reeves - Last Filed: 05/26/20 21:01> - General Stated complaint: 8wks preg, bleeding, cramping Time Seen by Provider: 05/26/20 19:02 - History of Present Illness Initial comments: This is a 24-year-old female presents emergency Department chief complaint of vaginal bleeding in early . Patient is A2 though she states she had a miscarriage in November and December of last year. Patient states that she started having some bright red bleeding and mild abdominal cramping around 2 this afternoon. He shouldn't denies any significant nausea vomiting diarrhea constipation mild urinary frequency no dysuria. (Paulo Landis) Took over care of patient Paulo Boby Belcher saw patient in waiting room as part of advance triage protocol. I performed independent history and physical exam. Agree with previous history. Would ad that patient states she only has bleeding when she wipes. Denies having to wear a pad. Denies any passage of blood clots. She is reporting some mild dysuria and still feels the urge to urinate when she finishes. The fever or chills. Denies any flank or back pain. (Analia Reeves) - Related Data Home Medications Medication Instructions Recorded Confirmed Cholecalciferol [Vitamin D3 (25 50 mcg PO DAILY 05/26/20 05/26/20 Mcg = 1000 Iu)] Pnv No.95/Ferrous Fum/Folic AC 1 tab PO DAILY 05/26/20 05/26/20 [ Multivitamin Tablet] Pyridoxine HCl (Vitamin B6) 100 mg PO DAILY 05/26/20 05/26/20 [Vitamin B-6] buPROPion XL [Wellbutrin Xl] 150 mg PO DAILY 05/26/20 05/26/20 Previous Rx's Medication Instructions Recorded Cephalexin [Keflex] 500 mg PO BID #10 cap 05/26/20 Allergies Allergy/AdvReac Type Severity Reaction Status Date / Time No Known Allergies Allergy Verified 05/26/20 20:30 Review of Systems ROS Other: All systems not noted in ROS Statement are negative. <Paulo Landis - Last Filed: 05/26/20 19:02> ROS Other: All systems not noted in ROS Statement are negative. <Analia Reeves M - Last Filed: 05/26/20 21:01> ROS Statement: Those systems with pertinent positive or pertinent negative responses have been documented in the HPI. Past Medical History Past Medical History: Thyroid Disorder History of Any Multi-Drug Resistant Organisms: None Reported Past Surgical History: Section Past Psychological History: Anxiety Smoking Status: Never smoker Past Alcohol Use History: None Reported, Occasional Past Drug Use History: Marijuana <Paulo Landis M - Last Filed: 05/26/20 19:02> General Exam General appearance: alert, in no apparent distress, other (This is a well- developed, well-nourished adult female patient in no acute distress. Vital si gns upon presentation temperature 98.5F, pulse 94, respirations 18, blood pressure 135/85, pulse ox 98% on room air.) Eye exam: Present: normal appearance, PERRL, EOMI. Absent: scleral icterus, conjunctival injection, periorbital swelling ENT exam: Present: normal exam, normal oropharynx, mucous membranes moist Respiratory exam: Present: normal lung sounds bilaterally. Absent: respiratory distress, wheezes, rales, rhonchi, stridor Cardiovascular Exam: Present: regular rate, normal rhythm, normal heart sounds. Absent: systolic murmur, diastolic murmur, rubs, gallop, clicks GI/Abdominal exam: Present: soft, normal bowel sounds. Absent: distended, tenderness, guarding, rebound, rigid Back exam: Present: normal inspection. Absent: CVA tenderness (R), CVA tenderness (L) Neurological exam: Present: alert, oriented X3, CN II-XII intact Psychiatric exam: Present: normal affect, normal mood Skin exam: Present: warm, dry, intact, normal color. Absent: rash <Analia Reeves M - Last Filed: 05/26/20 21:01> Course Vital Signs 05/26/20 19:00 Temperature 98.5 F Pulse Rate 94 Respiratory 18 Rate Blood Pressure 135/85 O2 Sat by Pulse 98 Oximetry Medical Decision Making - Radiology Data Radiology results: report reviewed, image reviewed <Analia Reeves M - Last Filed: 05/26/20 21:01> - Medical Decision Making 24-year-old female patient presented to the emergency department today for evaluation of vaginal bleeding. She is G4, P1. Equal examination is unremarkable. Patient reports blood only with wiping. Abdomen soft and nontender. HCG is pending. Ultrasound shows a single live intrauterine gestation with heart rate of 181, measuring 7 weeks 6 days. There was a small subchorionic hemorrhage. The previous record shows blood type A+. Urinalysis did show moderate bacteria we'll start Keflex. I did discuss findings and results with her. Should be discharged follow up with her ROLL OUT MANAGER for recheck in 1-2 days. She is given a lab slip to have repeat hCG performed in 2 days. Return parameters were discussed in detail. She verbalizes understanding and agrees with this plan. Case discussed with my attending Dr. Hernandez. (Analia Reeves) - Lab Data Lab Results 05/26/20 05/26/20 Range/Units 19:00 19:00 Urine Color Light Yellow Urine Appearance Cloudy H (Clear) Urine pH 6.5 (5.0-8.0) Ur Specific [place] 1.013 (1.001-1.035) Urine Protein Negative (Negative) Urine Glucose (UA) Negative (Negative) Urine Ketones Negative (Negative) Urine Blood Negative (Negative) Urine Nitrite Negative (Negative) Urine Bilirubin Negative (Negative) Urine Urobilinogen <2.0 (<2.0) mg/dL Ur Leukocyte Esterase Negative (Negative) Urine RBC <1 (0-5) /hpf Urine WBC 1 (0-5) /hpf Ur Squamous Epith Cells 2 (0-4) /hpf Amorphous Sediment Rare H (None) /hpf Urine Bacteria Moderate H (None) /hpf Urine Mucus Rare H (None) /hpf Urine HCG, Qual Detected (Not Detectd) - Radiology Data Ultrasound of the fetus was obtained. Report reviewed in its entirety. Impression by Dr. Oseguera show single live intrauterine gestation with heart rate of 181. Estimated gestational age 7 weeks 6 days. Small subchorionic hemorrhage frontal into the right of this dictation sac. Normal appearance of the bilateral ovary. No pelvic free fluid. (Analia Reeves) Disposition <Paulo Landis - Last Filed: 05/26/20 19:02> Is patient prescribed a controlled substance at d/c from ED?: No Time of Disposition: 20:50 <Analia Reeves - Last Filed: 05/26/20 21:01> Clinical Impression: Subchorionic bleed, Bacteriuria during Disposition: HOME SELF-CARE Condition: Good Instructions (If sedation given, give patient instructions): Subchorionic Hemorrhage (ED) Additional Instructions: You had bacteria in your urine so we are treating with an antibiotic for a couple of days. Return in 2 days to have your hormone level drawn for comparison. Call your OBGYN in the morning for an appointment and to inform them of findings. Maintain pelvic rest until cleared by OBGYN. Return to the emergency department for any new, worsening, or concerning symptoms. Prescriptions: Cephalexin [Keflex] 500 mg PO BID #10 cap Referrals: Michael Winkler MD [Primary Care Provider] - 1-2 days
[2020-05-26 19:04] VITALS: RESP 18; TEMP 98.5
[2020-05-26 19:32] LABS: Amorphous Sediment,Urine Rare /hpf; Appearance,Urine Cloudy (Clear); Bacteria,Urine Moderate /hpf; Bilirubin,Urine Negative (Negative); Blood,Urine Negative (Negative); Color,Urine Light Yellow; Glucose,Urine (UA) Negative (Negative); Ketones,Urine Negative (Negative); Leukocyte Esterase,Urine Negative (Negative); Mucus,Urine Rare /hpf; Nitrite,Urine Negative (Negative); PH, Urine 6.5 (5.0-8.0); Protein,Urine Negative (Negative); RBC,Urine <1 /hpf (0-5); Specific Gravity,Urine 1.013 (1.001-1.035); Squamous Epithelial Cell,Urine 2 /hpf (0-4); Urobilinogen,Urine <2.0 mg/dL (<2.0); WBC,Urine 1 /hpf (0-5)
--- NOTE | 2020-05-26 20:36 | US ---
EXAMINATION TYPE: Transabdominal DATE OF EXAM: 05/26/2020 8:16 PM COMPARISON: NONE CLINICAL HISTORY: pain. Cramping and spotting x 1 day, 4, para 1, miscarriage 2, history of c -section EXAM PERFORMED: Transabdominal (TA) EXAM MEASUREMENTS: GESTATIONAL AGE / DATING Physician Established: ( 8 weeks/0 days) EDC: 01/05/2021 Dates by LMP: (8 weeks/4 days) EDC: 01/01/2021 Dates by First Scan: No previous this is first scan Dates by Current Scan for: ( 7 weeks/6 days) EDC: 01/06/2021 MATERNAL ANATOMY Uterus: 9.5 x 6.1 x 6.2cm Right Ovary: 2.9 x 2.0 x 2.4cm Left Ovary: 3.1 x 1.4 x 2.9cm Post CDS / Adnexa: Normal. Presence of free fluid: no Presence of corpus luteal cyst: right ovary: 1.5cm Presence of subchorionic bleed: 1.5 x 0.8 x 1.5cm , to the right of the gestational sac, fundal. GESTATION / SURVEY CRL: 1.5cm, 7 weeks/6 days) Yolk Sac (normal less than 6mm): not seen Heart Rate: 181 bpm Rhythm: Normal IUP: Viable IUP Date of LMP: 03/27/2020 Beta HcG (if available): Not available at time of exam IMPRESSION: 1. Single live intrauterine gestation with heart rate of 181 bpm. Estimated gestational age 7 w eeks 6 days. 2. Small subchorionic hemorrhage fundal and to the right of the gestational sac. 3. Normal appearance of the bilateral ovaries. 4. No pelvic free fluid.
[2020-05-26] MEDS ORDERED: CEPHALEXIN 500MG STARTER PACK 4 CAP BTL PO STA (20:48)
[2020-05-26 21:03] VITALS: BP 129/78; PULSE 89
== END 2020-05-26 21:03 | disposition home or self-care (01) ==
LOC: EC 18:51
DX: O20.8 Other hemorrhage in early pregnancy (principal); O26.891 Other specified pregnancy related conditions, first trimester; R82.71 Bacteriuria; R30.0 Dysuria; O99.341 Other mental disorders complicating pregnancy, first trimester; F41.9 Anxiety disorder, unspecified; Z3A.01 Less than 8 weeks gestation of pregnancy
CPT/HCPCS: 36415; 76801; 81001; 81025; 84702; 86900; 86901; 99284

== ENCOUNTER → 2020-05-28 | Outpatient (CLI) | payer BC, OTHER | END | disposition home or self-care (01) | LOC: LABWHC1 10:29 | PROVIDERS: ATTEND Nurse Practitioner | DX: O26.859 Spotting complicating pregnancy, unspecified trimester (principal); Z3A.00 Weeks of gestation of pregnancy not specified | CPT/HCPCS: 36415; 84702 ==

== ENCOUNTER 2023-11-22 21:59 | Outpatient (CLI) | payer BC, OTHER ==
[2023-11-22 22:07] VITALS: BP 112/65; PULSE 89; RESP 18; TEMP 97.1
--- NOTE | 2023-12-21 07:42 | P.MSEPDOC ---
Presenting Problems - Arrival Data Date of Arrival on Unit: 11/22/23 Time of Arrival on Unit: 21:59 Mode of Transport: Ambulatory - Complaint OB-Reason for Admission/Chief Complaint: Vaginal Bleeding Comment: pt presents to tr with c/o vag bleeding that started about 2129. pt states when she wiped, she had moderate amount of bright red bleeding. pt did not have to wear a pad in. pt denies any leaking of fluid or abd pain. pt reports +fm. pt is a previous c/s x2, both term deliveries. Medical History - Information : 3 Para: 2 Term: 2 : 0 Abortions: Spontaneous or Elective: 0 Number of Living Children: 2 - Gestational Age Gestational Age by HUAN (wks/days): 26 Weeks and 2 Days - History Complications: Prior Review of Systems - Review of Systems Constitutional: No problems Breast: No problems ENT: No problems Cardiovascular: No problems Respiratory: No problems Gastrointestinal: No problems Genitourinary: No problems Musculoskeletal: No problems Neurological: Seizure Skin: No problems Comment: Patient has history of seizures, currently on keppra 1000mg BID. Last seizure was in April (grand mal) Vital Signs - Temperature Temperature: 97.1 F Temperature Source: Oral - Pulse Right Pulse Rate: 89 Pulse Assessment Method: Automatic Cuff - Respirations Respiratory Rate: 18 Oxygen Delivery Method: Room Air - Blood Pressure Right Arm Blood Pressure: 112/65 Blood Pressure Mean: 80 Blood Pressure Source: Automatic Cuff Medical Screen Scoring - Cervical Exam Membranes: Intact - Uterine Contractions Intensity: Absent Resting: Soft to palpation - Assessment - Baby A Baseline FHR: 140 Heart Rate - NICHD Category: Category I (Normal) Physician Notification - Physician Notified Physician Notified Date: 11/22/23 Physician Notified Time: 22:28 Physician: Yany Albarado New Order Received: Yes (Discharge home with instructions to follow up with OB.) - Notification Comment Comment: RN reported on patient, , GA 26 2/7, stable vital signs, 2 previous term c/s, complaint of bright red vaginal bleeding when wiping after using the restroom starting at 0. Patient denies cramping and leaking fluid. Patient states she is feeling baby move. Denies intercourse in the last 24 hours. RN reported on cat 1 heart tones and no contractions trace via TOCO, and abdomen soft and non tender upon palpation. RN reported that upon examination of the the vagina, a small abrasion was noted to be fresh and bleeding on the right labia. No bleeding visual at vaginal opening. Orders to discharge home and to follow up with [facility], and be sure and let them know about the abrasion. Dr. Albarado asks nurse to reassure patient the bleeding is exterior, and the heart tones via u/s indicate baby is doing well. Maternal Triage Index - Maternal Triage Index Presenting for scheduled procedure w/no complaint: No - Stat/Priority 1 Stat Priority 1: No - Urgent/Priority 2 Urgent Priority 2: Yes Provider Notified: Yany Albarado Provider Notified Time: 22:28 Criteria Met for Priority 2: pt presents to tr with c/o vag bleeding that started about 2129. pt states when she wiped, she had moderate amount of bright red bleeding. pt did not have to wear a pad in. pt denies any leaking of fluid or abd pain. pt reports +fm. pt is a previous c/s x2, both term deliveries. Disposition - Disposition OB Disposition: Discharge to home Discharge Date: 11/22/23 Discharge Time: 22:41 I agree with the RN Medical Screening Exam: Yes Case reviewed; plan agreed upon as documented in EMR&OBIX.: Yes Diagnosis: RELATED CONDITIONS, UNSPECIFIED, THIRD TRIMESTER
== END 2023-11-22 22:34 | disposition home or self-care (01) ==
LOC: FBPOP 21:59
PROVIDERS: ATTEND Obstetrics & Gynecology Obstetrics
DX: O46.92 Antepartum hemorrhage, unspecified, second trimester (principal); Z3A.26 26 weeks gestation of pregnancy
CPT/HCPCS: 99213

== ENCOUNTER 2024-04-28 16:28 | Emergency (ER) | payer BC, OTHER ==
--- NOTE | 2024-04-28 17:19 | ED ---
Abdominal Pain HPI - General Source: patient, RN notes reviewed Mode of arrival: ambulatory Limitations: no limitations <Elvia Jennings - Last Filed: 04/28/24 17:23> <Mayco Lovell - Last Filed: 05/02/24 04:35> - General Chief Complaint: Abdominal Pain Stated Complaint: Abd pain Time Seen by Provider: 04/28/24 17:10 - History of Present Illness Initial Comments: Quick Note: This is a 28 year old female who presents to the emergency department for abdominal pain. States that it started overnight and involves the whole left side of her abdomen. She has nausea but no vomiting. Denies any changes in bowel/bladder habits or hx of similar sx in the past. (Elvia Jennings) 28-year-old female presenting with chief complaint of abdominal pain. Pain started last night. It is in the upper and lower portions on the left side of her abdomen. She admits to nausea with no vomiting. No diarrhea or constipation. No blood in the stool. No fever. No chest pain or difficulty breathing. No cough congestion or sore throat. (Mayco Lovell) - Related Data Home Medications Medication Instructions Recorded Confirmed Pnv No.95/Ferrous Fum/Folic AC 1 tab PO DAILY 05/26/20 11/22/23 [ Multivitamin Tablet] FLUoxetine HCL [PROzac] 40 mg PO DAILY 11/22/23 11/22/23 levETIRAcetam [Keppra] 1,000 mg PO BID 11/22/23 11/22/23 Previous Rx's Medication Instructions Recorded Amoxic-Pot Clav 875-125Mg 1 tab PO Q12HR 7 Days #14 tab 04/28/24 [Augmentin 875-125] HYDROcodone/APAP 7.5-325MG [[place] 1 tab PO Q6HR PRN 3 Days #12 tab 04/28/24 7.5-325] Ondansetron Odt [Zofran Odt] 4 mg PO Q8HR PRN #20 tab 04/28/24 Allergies Allergy/AdvReac Type Severity Reaction Status Date / Time No Known Allergies Allergy Verified 04/28/24 17:14 Review of Systems ROS Other: All systems not noted in ROS Statement are negative. <Elvia Jennings - Last Filed: 04/28/24 17:23> ROS Other: All systems not noted in ROS Statement are negative. <Mayco Lovell - Last Filed: 05/02/24 04:35> ROS Statement: Those systems with pertinent positive or pertinent negative responses have been documented in the HPI. Past Medical History Past Medical History: Thyroid Disorder History of Any Multi-Drug Resistant Organisms: None Reported Past Surgical History: Section Smoking Status: Never smoker <Elvia Jennings - Last Filed: 04/28/24 17:23> General Exam <Elvia Jennings - Last Filed: 04/28/24 17:23> General appearance: alert, in no apparent distress Head exam: Present: atraumatic, normocephalic, normal inspection Eye exam: Present: normal appearance, EOMI Neck exam: Present: normal inspection. Absent: meningismus Respiratory exam: Present: normal lung sounds bilaterally. Absent: respiratory distress, wheezes, rales, rhonchi, stridor Cardiovascular Exam: Present: regular rate, normal rhythm, normal heart sounds. Absent: systolic murmur, diastolic murmur, rubs, gallop, clicks GI/Abdominal exam: Present: soft, tenderness. Absent: distended, guarding, rebound, rigid Neurological exam: Present: alert, oriented X3 Psychiatric exam: Present: normal affect, normal mood Skin exam: Present: warm, dry, normal color <Mayco Lovell - Last Filed: 05/02/24 04:35> - General Exam Comments Initial Comments: Visual Physical Exam Vital signs reviewed General: Well-appearing, nontoxic, no acute distress. Head: Normocephalic, atraumatic Eyes: PERRLA, EOMI ENT: Airway patent Chest: Nonlabored breathing Skin: No visual rash, normal skin tone Neuro: Alert and oriented 3 Musculoskeletal: No gross abnormalities (Elvia Jennings) Course Vital Signs 04/28/24 04/28/24 04/28/24 17:11 21:13 22:15 Temperature 98.5 F 98.2 F Pulse Rate 103 H 90 74 Respiratory 20 18 18 Rate Blood Pressure 97/66 95/59 95/62 O2 Sat by Pulse 96 100 98 Oximetry Medical Decision Making <Elvia Jennings - Last Filed: 04/28/24 17:23> - Lab Data Result diagrams: 04/28/24 17:44 04/28/24 17:44 <Mayco Lovell - Last Filed: 05/02/24 04:35> - Medical Decision Making I performed the QuickNote portion of this chart. Signed Elvia Jennings PA-C. (Elvia Jennings) Was pt. sent in by a medical professional or institution (, [facility], [facility], urgent care, hospital, or fpc...) When possible be specific @ -No Did you speak to anyone other than the patient for history (EMS, parent, family, police, friend...)? What history was obtained from this source @ -No Did you review nursing and triage notes (agree or disagree)? Why? @ -I reviewed and agree with nursing and triage notes Were old charts reviewed (outside hosp., previous admission, EMS record, old EKG, old radiological studies, urgent care reports/EKG's, fpc records)? Report findings @ -No old charts were reviewed Differential Diagnosis (chest pain, altered mental status, abdominal pain women, abdominal pain men, vaginal bleeding, weakness, fever, dyspnea, syncope, headache, dizziness, GI bleed, back pain, seizure, CVA, palpatations, mental h ealth, musculoskeletal)? @ -MDM Differential Abdominal Pain Women: Appendicitis, Cholecystitis, diverticulosis, ischemic bowel, pancreatitis, hepatitis, UTI, gastroenteritis, AAA, incarcerated hernia, bowel obstruction, constipation, inflammatory bowel, hepatitis, peptic ulcer disease, splenic inf arction, perforated viscus, vulvitis, ovarian torsion, PID, kidney stone, placenta abruption... This is not meant to be an all-inclusive list EKG interpreted by me (3pts min.). @ -As above X-rays interpreted by me (1pt min.). @ -None done CT interpreted by me (1pt min.). @ -CT shows acute uncomplicated diverticulitis involving the descending colon near the splenic flexure U/S interpreted by me (1pt. min.). @ -None done What testing was considered but not performed or refused? (CT, X-rays, U/S, labs)? Why? @ -None What meds were considered but not given or refused? Why? @ -None Did you discuss the management of the patient with other professionals (professionals i.e. , PA, [facility], lab, RT, psych nurse, social economist, clinic mgr, teacher, correctional probation officer, watch caser)? Give summary @ -No Was smoking cessation discussed for >3mins.? @ -No Was critical care preformed (if so, how long)? @ -No Were there social determinants of health that impacted care today? How? (Homelessness, low income, unemployed, alcoholism, drug addiction, transportation, low edu. Level, literacy, decrease access to med. care, fci, rehab)? @ -No Was there de-escalation of care discussed even if they declined (Discuss DNR or withdrawal of care, Hospice)? DNR status @ -No What co-morbidities impacted this encounter? (DM, HTN, Smoking, COPD, CAD, Cancer, CVA, ARF, Chemo, Hep., AIDS, mental health diagnosis, sleep apnea, morbid obesity)? @ -None Was patient admitted / discharged? Hospital course, mention meds given and route, prescriptions, significant lab abnormalities, going to OR and other pertinent info. @ -28-year-old female presenting with chief complaint of left-sided abdominal pain and nausea. Workup initiated by triage, patient later placed in room and evaluated by myself. CT is positive for acute uncomplicated diverticulitis. White count of 12.2 which is to be expected. Negative hCG. Urine shows no infectious process. Patient treated with Augmentin. Provided with pain medicat ion and antiemetics. Educated on today's findings and treatment plan. Follow- up with PCP. Report back to ER with any new or worsening symptoms. Discussed return parameters and answered all questions. Patient conveyed verbal understanding and agreed to the plan. I discussed this case in detail with my attending Dr. Dyson Undiagnosed new problem with uncertain prognosis? @ -No Drug Therapy requiring intensive monitoring for toxicity (Heparin, Nitro, Insulin, Cardizem)? @ -No Were any procedures done? @ -No Diagnosis/symptom? @ -Diverticulitis Acute, or Chronic, or Acute on Chronic? @ -Acute Uncomplicated (without systemic symptoms) or Complicated (systemic symptoms)? @ -Uncomplicated Side effects of treatment? @ -No Exacerbation, Progression, or Severe Exacerbation? @ -No Poses a threat to life or bodily function? How? (Chest pain, USA, ND, pneumonia, PE, COPD, DKA, ARF, appy, cholecystitis, CVA, Diverticulitis, Homicidal, Suicidal, threat to staff... and all critical care pts) @ -Low likelihood (Mayco Lovell) - Lab Data Lab Results 04/28/24 04/28/24 04/28/24 Range/Units 17:15 17:15 17:44 WBC 12.2 H (3.8-10.6) k/uL RBC 4.56 (3.80-5.40) m/uL Hgb 12.2 (11.4-16.0) gm/dL Hct 38.0 (34.0-46.0) % MCV 83.4 (80.0-100.0) fL MCH 26.6 (25.0-35.0) pg MCHC 32.0 (31.0-37.0) g/dL RDW 14.8 (11.5-15.5) % Plt Count 268 (150-450) k/uL MPV 9.2 Neutrophils % 76 % Lymphocytes % 19 % Monocytes % 4 % Eosinophils % 0 % Basophils % 0 % Neutrophils # 9.3 H (1.3-7.7) k/uL Lymphocytes # 2.3 (1.0-4.8) k/uL Monocytes # 0.4 (0-1.0) k/uL Eosinophils # 0.1 (0-0.7) k/uL Basophils # 0.0 (0-0.2) k/uL Sodium (137-145) mmol/L Potassium (3.5-5.1) mmol/L Chloride (98-107) mmol/L Carbon Dioxide (22-30) mmol/L Anion Gap mmol/L BUN (7-17) mg/dL Creatinine (0.52-1.04) mg/dL Est GFR (CKD-EPI)AfAm (>60 ml/min/1.73 sqM) Est GFR (CKD-EPI)NonAf (>60 ml/min/1.73 sqM) Glucose (74-99) mg/dL Plasma Lactic Acid Gerry (0.7-2.0) mmol/L Calcium (8.4-10.2) mg/dL Total Bilirubin (0.2-1.3) mg/dL AST (14-36) U/L ALT (4-34) U/L Alkaline Phosphatase (38-126) U/L Total Protein (6.3-8.2) g/dL Albumin (3.5-5.0) g/dL Amylase (30-110) U/L Lipase (23-300) U/L HCG, Qual Urine Color Yellow Urine Appearance Clear (Clear) Urine pH 6.0 (5.0-8.0) Ur Specific [place] 1.029 (1.001-1.035) Urine Protein Trace H (Negative) Urine Glucose (UA) Negative (Negative) Urine Ketones 3+ H (Negative) Urine Blood Negative (Negative) Urine Nitrite Negative (Negative) Urine Bilirubin Negative (Negative) Urine Urobilinogen <2.0 (<2.0) mg/dL Ur Leukocyte Esterase Negative (Negative) Urine HCG, Qual Not Detected (Not Detectd) 04/28/24 04/28/24 Range/Units 17:44 17:44 WBC (3.8-10.6) k/uL RBC (3.80-5.40) m/uL Hgb (11.4-16.0) gm/dL Hct (34.0-46.0) % MCV (80.0-100.0) fL MCH (25.0-35.0) pg MCHC (31.0-37.0) g/dL RDW (11.5-15.5) % Plt Count (150-450) k/uL MPV Neutrophils % % Lymphocytes % % Monocytes % % Eosinophils % % Basophils % % Neutrophils # (1.3-7.7) k/uL Lymphocytes # (1.0-4.8) k/uL Monocytes # (0-1.0) k/uL Eosinophils # (0-0.7) k/uL Basophils # (0-0.2) k/uL Sodium 136 L (137-145) mmol/L Potassium 3.9 (3.5-5.1) mmol/L Chloride 100 (98-107) mmol/L Carbon Dioxide 25 (22-30) mmol/L Anion Gap 11 mmol/L BUN 13 (7-17) mg/dL Creatinine 0.78 (0.52-1.04) mg/dL Est GFR (CKD-EPI)AfAm >90 (>60 ml/min/1.73 sqM) Est GFR (CKD-EPI)NonAf >90 (>60 ml/min/1.73 sqM) Glucose 77 (74-99) mg/dL Plasma Lactic Acid Gerry 0.5 L (0.7-2.0) mmol/L Calcium 9.8 (8.4-10.2) mg/dL Total Bilirubin 1.6 H (0.2-1.3) mg/dL AST 28 (14-36) U/L ALT 33 (4-34) U/L Alkaline Phosphatase 50 (38-126) U/L Total Protein 7.4 (6.3-8.2) g/dL Albumin 4.6 (3.5-5.0) g/dL Amylase 39 (30-110) U/L Lipase 96 (23-300) U/L HCG, Qual Not Detected Urine Color Urine Appearance (Clear) Urine pH (5.0-8.0) Ur Specific [place] (1.001-1.035) Urine Protein (Negative) Urine Glucose (UA) (Negative) Urine Ketones (Negative) Urine Blood (Negative) Urine Nitrite (Negative) Urine Bilirubin (Negative) Urine Urobilinogen (<2.0) mg/dL Ur Leukocyte Esterase (Negative) Urine HCG, Qual (Not Detectd) Disposition <Elvia Jennings - Last Filed: 04/28/24 17:23> Is patient prescribed a controlled substance at d/c from ED?: Yes When asked, does pt state using other controlled substances?: No If prescribed controlled substance>3 days was MAPS reviewed?: Prescribed <3 Days If opioid is for acute pain is fill amount 7 days or less?: Yes Time of Disposition: 22:02 <Mayco Lovell - Last Filed: 05/02/24 04:35> Clinical Impression: Diverticulitis Disposition: HOME SELF-CARE Condition: Good Instructions (If sedation given, give patient instructions): Diverticulitis (ED), Diverticulitis Diet (ED) Additional Instructions: Follow-up with PCP. Report back to ER with any new or worsening symptoms. Take medication as prescribed. Prescriptions: Amoxic-Pot Clav 875-125Mg [Augmentin 875-125] 1 tab PO Q12HR 7 Days #14 tab HYDROcodone/APAP 7.5-325MG [[place] 7.5-325] 1 tab PO Q6HR PRN 3 Days #12 tab PRN Reason: Pain Ondansetron Odt [Zofran Odt] 4 mg PO Q8HR PRN #20 tab PRN Reason: Nausea Referrals: None,Stated [Primary Care Provider] - 1-2 days
[2024-04-28 17:39] LABS: Appearance,Urine Clear (Clear); Bilirubin,Urine Negative (Negative); Blood,Urine Negative (Negative); Color,Urine Yellow; Glucose,Urine (UA) Negative (Negative); Ketones,Urine 3+ (Negative); Leukocyte Esterase,Urine Negative (Negative); Nitrite,Urine Negative (Negative); Protein,Urine Trace (Negative); Specific Gravity,Urine 1.029 (1.001-1.035); Urobilinogen,Urine <2.0 mg/dL (<2.0)
[2024-04-28 18:14] LABS: ALT 33 U/L (4-34); AST 28 U/L (14-36); African American GFR (CKD) >90 (>60 ml/min/1.73 sqM); Albumin 4.6 g/dL (3.5-5.0); Alkaline Phosphatase 50 U/L (38-126); Amylase 39 U/L (30-110); Anion Gap 11 mmol/L; Blood Urea Nitrogen 13 mg/dL (7-17); Calcium 9.8 mg/dL (8.4-10.2); Carbon Dioxide 25 mmol/L (22-30); Chloride 100 mmol/L (98-107); Glucose 77 mg/dL (74-99); Lipase 96 U/L (23-300); Non-African American GFR(CKD) >90 (>60 ml/min/1.73 sqM); Potassium 3.9 mmol/L (3.5-5.1); Sodium 136 mmol/L (137-145); Total Bilirubin 1.6 mg/dL (0.2-1.3); Total Protein 7.4 g/dL (6.3-8.2)
[2024-04-28 19:01] LABS: HCG,Qualitative Serum Not Detected
--- NOTE | 2024-04-28 20:05 | CT ---
EXAMINATION TYPE: CT abdomen pelvis w con DATE OF EXAM: 04/28/2024 7:36 PM COMPARISON: CT abdomen pelvis most recent from 02/10/2020 CLINICAL INDICATION: Female, 28 years old with history of Left sided abdominal pain; Left sided abdom inal pain. TECHNIQUE: Axial CT abdomen pelvis w con;Sagittal and coronal reformats were created on a separate w orkstation. Contrast used:100 ml mL of Isovue 300 with IV Contrast, (none if empty) Oral contrast used: without Oral Contrast (none if empty) CT DLP: 1273.6 mGycm, Automated exposure control for dose reduction was used. FINDINGS: LOWER CHEST: Unremarkable ABDOMEN LIVER: Unremarkable GALLBLADDER AND BILE DUCTS: Unremarkable. PANCREAS: Unremarkable. SPLEEN: Unremarkable. ADRENAL GLANDS: Unremarkable. KIDNEYS AND URETERS: No evidence of hydronephrosis or renal calculus. The ureters are unremarkable. Simple appearing right renal cysts no follow-up recommended. PELVIS BLADDER: No evidence for wall thickening or mass given limitations of exam. REPRODUCTIVE: Prominent endometrium likely due to menses. ABDOMEN & PELVIS STOMACH AND BOWEL: No evidence of bowel obstruction. Fat stranding changes around the left upper quad rant:/splenic flexure with at least one diverticula present thought to be centered around the informa tion. No organizing fluid collection or mass. Appendix is normal. PERITONEUM/RETROPERITONEUM: No evidence of pneumoperitoneum or free fluid. VASCULATURE: No evidence of aortic aneurysm. MUSCULOSKELETAL: No acute osseous abnormalities LYMPH NODES: No gross evidence for lymphadenopathy. SOFT TISSUE/ABDOMINAL WALL: Unremarkable IMPRESSION: Acute uncomplicated diverticulitis involving the ascending colon near the splenic flexure. [facility], , 04/28/2024 8:02 PM
[2024-04-28 20:29] LABS: Basophils % (A) 0 %; Eosinophils # (A) 0.1 k/uL (0-0.7); Eosinophils % (A) 0 %; HGB 12.2 gm/dL (11.4-16.0); Lymphocytes # (A) 2.3 k/uL (1.0-4.8); Lymphocytes % (A) 19 %; MCH 26.6 pg (25.0-35.0); MCV 83.4 fL (80.0-100.0); Mean Platelet Volume 9.2; Monocytes # (A) 0.4 k/uL (0-1.0); Monocytes % (A) 4 %; Neutrophils # (A) 9.3 k/uL (1.3-7.7); Neutrophils % (A) 76 %; Platelet Count 268 k/uL (150-450); RBC 4.56 m/uL (3.80-5.40); RDW 14.8 % (11.5-15.5); WBC 12.2 k/uL (3.8-10.6)
[2024-04-28] MEDS: SODIUM CHLORIDE 0.9% 1,000 ML IV SCH (20:35)
[2024-04-28] MEDS: AMOXIC-POT CLAV 875-125MG 1 EACH TAB PO STA (20:35)
[2024-04-28] MEDS: KETOROLAC 15 MG/ML 1 ML VIAL IVP STA (20:36)
[2024-04-28] MEDS: ONDANSETRON 4 MG/2 ML VIAL IVP STA (20:36)
[2024-04-28] MEDS: MORPHINE SULFATE 4 MG/ML SYRINGE IVP STA (20:37)
[2024-04-28 21:13] VITALS: RESP 18
[2024-04-28] MEDS: HYDROmorphone 1 MG/ML 1 ML SYRINGE IVP STA (21:18)
[2024-04-28] MEDS: ACET/COD 300 MG/30 MG STARTER PACK 6 TAB BTL PO STA (22:09)
[2024-04-28 22:34] VITALS: BP 95/62; PULSE 74; TEMP 98.2
== END 2024-04-28 22:15 | disposition home or self-care (01) ==
LOC: EC 16:28
DX: K57.32 Diverticulitis of large intestine without perforation or abscess without bleeding (principal)
CPT/HCPCS: 36415; 80053; 82150; 83605; 83690; 85025; 81003; 81025; 84703; 74177; 99284; 96374; 96375 ×3; 96361 ×2; J2270; J2405; J1171; J1885; Q9967

== ENCOUNTER 2024-05-02 16:24 | Emergency (ER) | payer OTHER ==
[2024-05-02] MEDS: HYDROmorphone 1 MG/ML 1 ML SYRINGE IVP STA (18:54)
[2024-05-02] MEDS: ONDANSETRON 4 MG/2 ML VIAL IVP STA (18:54)
[2024-05-02] MEDS: KETOROLAC 15 MG/ML 1 ML VIAL IVP STA (18:54)
[2024-05-02] MEDS: SODIUM CHLORIDE 0.9% 1,000 ML IV STA (18:55)
--- NOTE | 2024-05-02 18:55 | ED ---
Abdominal Pain HPI - General Chief Complaint: Abdominal Pain Stated Complaint: Abd pain, constipation Time Seen by Provider: 05/02/24 18:48 Source: patient, RN notes reviewed Mode of arrival: ambulatory Limitations: no limitations - History of Present Illness Initial Comments: 28-year-old female presenting for left-sided abdominal pain x 5 days. States she was seen in the ER 4 days ago and was diagnosed with diverticulitis and discharged with Augmentin. Patient states pain has been worsening in severity and is located on the left upper and lower quadrant. Patient also endorses nausea and vomiting. Patient took a codeine this morning with little relief. Patient states last bowel movement was 6 days ago and was diarrhea. Patient has been tolerating minimal amounts of orals. No other medical conditions. Denies fevers or chills. - Related Data Home Medications Medication Instructions Recorded Confirmed Pnv No.95/Ferrous Fum/Folic AC 1 tab PO DAILY 05/26/20 11/22/23 [ Multivitamin Tablet] FLUoxetine HCL [PROzac] 40 mg PO DAILY 11/22/23 11/22/23 levETIRAcetam [Keppra] 1,000 mg PO BID 11/22/23 11/22/23 Previous Rx's Medication Instructions Recorded Amoxic-Pot Clav 875-125Mg 1 tab PO Q12HR 7 Days #14 tab 04/28/24 [Augmentin 875-125] HYDROcodone/APAP 7.5-325MG [[place] 1 tab PO Q6HR PRN 3 Days #12 tab 04/28/24 7.5-325] Ondansetron Odt [Zofran Odt] 4 mg PO Q8HR PRN #20 tab 04/28/24 Allergies Allergy/AdvReac Type Severity Reaction Status Date / Time No Known Allergies Allergy Verified 05/02/24 17:04 Review of Systems ROS Statement: Those systems with pertinent positive or pertinent negative responses have been documented in the HPI. ROS Other: All systems not noted in ROS Statement are negative. Past Medical History Past Medical History: Thyroid Disorder History of Any Multi-Drug Resistant Organisms: None Reported Past Surgical History: Section Past Psychological History: Anxiety Smoking Status: Never smoker General Exam Limitations: no limitations General appearance: alert, in no apparent distress Head exam: Present: atraumatic, normocephalic, normal inspection Eye exam: Present: normal appearance, PERRL, EOMI. Absent: scleral icterus, conjunctival injection, periorbital swelling ENT exam: Present: normal exam, mucous membranes moist GI/Abdominal exam: Present: soft, tenderness (Left upper and lower quadrant tenderness to palpation), normal bowel sounds. Absent: distended, guarding, rebound, rigid Back exam: Absent: CVA tenderness (R), CVA tenderness (L) Neurological exam: Present: alert, oriented X3 Psychiatric exam: Present: normal affect, normal mood Skin exam: Present: warm, dry, intact, normal color. Absent: rash Course Vital Signs 05/02/24 05/02/24 16:57 20:03 Temperature 98.2 F 97.9 F Pulse Rate 69 78 Respiratory 17 16 Rate Blood Pressure 109/72 117/75 O2 Sat by Pulse 98 98 Oximetry Medical Decision Making - Medical Decision Making Was pt. sent in by a medical professional or institution (Dr. PA, PRODUCT APPLICATIONS ENGINEER, urgent care, hospital, or care home...) When possible be specific @ -No Did you speak to anyone other than the patient for history (EMS, parent, family, police, friend...)? What history was obtained from this source @ -No Did you review nursing and triage notes (agree or disagree)? Why? @ -I reviewed and agree with nursing and triage notes Were old charts reviewed (outside hosp., previous admission, EMS record, old EKG, old radiological studies, urgent care reports/EKG's, care home records)? Report findings @ -ER chart from 4 days ago reviewed including CT which reveals acute uncomplicated diverticulitis involving ascending colon near splenic fixture Differential Diagnosis (chest pain, altered mental status, abdominal pain women, abdominal pain men, vaginal bleeding, weakness, fever, dyspnea, syncope, headache, dizziness, GI bleed, back pain, seizure, CVA, palpatations, mental health, musculoskeletal)? @ -Differential Abdominal Pain Women: Appendicitis, Cholecystitis, diverticulosis, ischemic bowel, pancreatitis, hepatitis, UTI, gastroenteritis, AAA, incarcerated hernia, bowel obstruction, constipation, inflammatory bowel, hepatitis, peptic ulcer disease, splenic infarction, perforated viscus, vulvitis, ovarian torsion, PID, kidney stone, placenta abruption, this is not meant to be an all-inclusive list EKG interpreted by me (3pts min.). @ -None X-rays interpreted by me (1pt min.). @ -KUB reveals large amount of stool, nonspecific bowel gas pattern CT interpreted by me (1pt min.). @ -None done U/S interpreted by me (1pt. min.). @ -None done What testing was considered but not performed or refused? (CT, X-rays, U/S, labs)? Why? @ -Repeat CT deferred due to lab work improved from previous, symptoms likely due to stool burden What meds were considered but not given or refused? Why? @ -None Did you discuss the management of the patient with other professionals (professionals i.e. , PA, PRODUCT APPLICATIONS ENGINEER, lab, RT, psych nurse, marriage and family social worker, applications processor, teacher, head correction officer, rehabilitation case coordinator)? Give summary @ -No Was smoking cessation discussed for >3mins.? @ -No Was critical care preformed (if so, how long)? @ -No Were there social determinants of health that impacted care today? How? (Homelessness, low income, unemployed, alcoholism, drug addiction, transportation, low edu. Level, literacy, decrease access to med. care, prison, rehab)? @ -No Was there de-escalation of care discussed even if they declined (Discuss DNR or withdrawal of care, Hospice)? DNR status @ -No What co-morbidities impacted this encounter? (DM, HTN, Smoking, COPD, CAD, Cancer, CVA, ARF, Chemo, Hep., AIDS, mental health diagnosis, sleep apnea, morbi d obesity)? @ -None Was patient admitted / discharged? Hospital course, mention meds given and route , prescriptions, significant lab abnormalities, going to OR and other pertinent info. @ - discharge. 28-year-old female presenting for left-sided abdominal pain x 5 days. Was diagnosed with diverticulitis 4 days ago and was placed on Augmentin. Pain continues to worsen. Patient has left-sided abdominal tenderness. No bowel movement for the past 6 days. Patient was provided with IV fluids, pain medications, and analgesics for supportive care. Laboratory studies unremarkable, white blood cell count normal at 7.8 improved from 4 days ago. KUB reveals large amount of stool, nonspecific bowel gas pattern. I highly suspect symptoms are due to constipation. Patient was discharged with magnesium citrate. Appropriate return precautions and supportive care/follow-up care discussed and patient is agreeable to plan. Case was discussed with my ED attending Dr. Ervin. Undiagnosed new problem with uncertain prognosis? @ -No Drug Therapy requiring intensive monitoring for toxicity (Heparin, Nitro, Insulin, Cardizem)? @ -No Were any procedures done? @ -No Diagnosis/symptom? @ -Constipation Acute, or Chronic, or Acute on Chronic? @ -Acute Uncomplicated (without systemic symptoms) or Complicated (systemic symptoms)? @ -Uncomplicated Side effects of treatment? @ -No Exacerbation, Progression, or Severe Exacerbation? @ -No Poses a threat to life or bodily function? How? (Chest pain, [place], [place], pneumonia, PE, COPD, DKA, ARF, appy, cholecystitis, CVA, Diverticulitis, Homicidal, Suicidal, threat to staff... and all critical care pts) @ -No - Lab Data Result diagrams: 05/02/24 18:53 05/02/24 18:53 Lab Results 05/02/24 05/02/24 05/02/24 Range/Units 18:53 18:53 18:53 WBC 7.8 (3.8-10.6) k/uL RBC 4.91 (3.80-5.40) m/uL Hgb 13.2 (11.4-16.0) gm/dL Hct 40.4 (34.0-46.0) % MCV 82.3 (80.0-100.0) fL MCH 27.0 (25.0-35.0) pg MCHC 32.8 (31.0-37.0) g/dL RDW 14.8 (11.5-15.5) % Plt Count 336 (150-450) k/uL MPV 7.9 Neutrophils % 57 % Lymphocytes % 37 % Monocytes % 3 % Eosinophils % 2 % Basophils % 0 % Neutrophils # 4.5 (1.3-7.7) k/uL Lymphocytes # 2.8 (1.0-4.8) k/uL Monocytes # 0.2 (0-1.0) k/uL Eosinophils # 0.1 (0-0.7) k/uL Basophils # 0.0 (0-0.2) k/uL Sodium (137-145) mmol/L Potassium (3.5-5.1) mmol/L Chloride (98-107) mmol/L Carbon Dioxide (22-30) mmol/L Anion Gap mmol/L BUN (7-17) mg/dL Creatinine (0.52-1.04) mg/dL Est GFR (CKD-EPI)AfAm (>60 ml/min/1.73 sqM) Est GFR (CKD-EPI)NonAf (>60 ml/min/1.73 sqM) Glucose (74-99) mg/dL Plasma Lactic Acid Gerry (0.7-2.0) mmol/L Calcium (8.4-10.2) mg/dL Total Bilirubin (0.2-1.3) mg/dL AST (14-36) U/L ALT (4-34) U/L Alkaline Phosphatase (38-126) U/L Total Protein (6.3-8.2) g/dL Albumin (3.5-5.0) g/dL Lipase (23-300) U/L Urine Color Yellow Urine Appearance Cloudy H (Clear) Urine pH 7.0 (5.0-8.0) Ur Specific [place] 1.025 (1.001-1.035) Urine Protein Trace H (Negative) Urine Glucose (UA) Negative (Negative) Urine Ketones Negative (Negative) Urine Blood Negative (Negative) Urine Nitrite Negative (Negative) Urine Bilirubin Negative (Negative) Urine Urobilinogen 2.0 (<2.0) mg/dL Ur Leukocyte Esterase Negative (Negative) Urine WBC 3 (0-5) /hpf Ur Squamous Epith Cells 43 H (0-4) /hpf Urine Mucus Many H (None) /hpf Urine HCG, Qual Not Detected (Not Detectd) 05/02/24 05/02/24 Range/Units 18:53 18:53 WBC (3.8-10.6) k/uL RBC (3.80-5.40) m/uL Hgb (11.4-16.0) gm/dL Hct (34.0-46.0) % MCV (80.0-100.0) fL MCH (25.0-35.0) pg MCHC (31.0-37.0) g/dL RDW (11.5-15.5) % Plt Count (150-450) k/uL MPV Neutrophils % % Lymphocytes % % Monocytes % % Eosinophils % % Basophils % % Neutrophils # (1.3-7.7) k/uL Lymphocytes # (1.0-4.8) k/uL Monocytes # (0-1.0) k/uL Eosinophils # (0-0.7) k/uL Basophils # (0-0.2) k/uL Sodium 139 (137-145) mmol/L Potassium 4.0 (3.5-5.1) mmol/L Chloride 102 (98-107) mmol/L Carbon Dioxide 28 (22-30) mmol/L Anion Gap 9 mmol/L BUN 9 (7-17) mg/dL Creatinine 0.71 (0.52-1.04) mg/dL Est GFR (CKD-EPI)AfAm >90 (>60 ml/min/1.73 sqM) Est GFR (CKD-EPI)NonAf >90 (>60 ml/min/1.73 sqM) Glucose 85 (74-99) mg/dL Plasma Lactic Acid Gerry 0.7 (0.7-2.0) mmol/L Calcium 9.9 (8.4-10.2) mg/dL Total Bilirubin 0.7 (0.2-1.3) mg/dL AST 32 (14-36) U/L ALT 33 (4-34) U/L Alkaline Phosphatase 48 (38-126) U/L Total Protein 7.6 (6.3-8.2) g/dL Albumin 4.7 (3.5-5.0) g/dL Lipase 183 (23-300) U/L Urine Color Urine Appearance (Clear) Urine pH (5.0-8.0) Ur Specific [place] (1.001-1.035) Urine Protein (Negative) Urine Glucose (UA) (Negative) Urine Ketones (Negative) Urine Blood (Negative) Urine Nitrite (Negative) Urine Bilirubin (Negative) Urine Urobilinogen (<2.0) mg/dL Ur Leukocyte Esterase (Negative) Urine WBC (0-5) /hpf Ur Squamous Epith Cells (0-4) /hpf Urine Mucus (None) /hpf Urine HCG, Qual (Not Detectd) Disposition Clinical Impression: Constipation Disposition: HOME SELF-CARE Condition: Stable Instructions (If sedation given, give patient instructions): Constipation (ED) Additional Instructions: Take half of the bottle of magnesium citrate when you get home. If no bowel movement in 5 hours, take the other half. You may also use MiraLAX twice daily and senna twice daily over the course of the next week. Please return to the Emergency Department if symptoms worsen or any other concerns. Is patient prescribed a controlled substance at d/c from ED?: No Referrals: Stacy Hernandez NPC [REFERRING] - 1-2 days Time of Disposition: 19:51
[2024-05-02 19:07] LABS: Appearance,Urine Cloudy (Clear); Bilirubin,Urine Negative (Negative); Blood,Urine Negative (Negative); Color,Urine Yellow; Glucose,Urine (UA) Negative (Negative); Ketones,Urine Negative (Negative); Leukocyte Esterase,Urine Negative (Negative); Mucus,Urine Many /hpf; Nitrite,Urine Negative (Negative); Protein,Urine Trace (Negative); Specific Gravity,Urine 1.025 (1.001-1.035); Squamous Epithelial Cell,Urine 43 /hpf (0-4); WBC,Urine 3 /hpf (0-5)
[2024-05-02 19:10] LABS: Basophils % (A) 0 %; Eosinophils # (A) 0.1 k/uL (0-0.7); Eosinophils % (A) 2 %; HCT 40.4 % (34.0-46.0); HGB 13.2 gm/dL (11.4-16.0); Lymphocytes # (A) 2.8 k/uL (1.0-4.8); Lymphocytes % (A) 37 %; MCHC 32.8 g/dL (31.0-37.0); MCV 82.3 fL (80.0-100.0); Mean Platelet Volume 7.9; Monocytes # (A) 0.2 k/uL (0-1.0); Monocytes % (A) 3 %; Neutrophils # (A) 4.5 k/uL (1.3-7.7); Neutrophils % (A) 57 %; Platelet Count 336 k/uL (150-450); RBC 4.91 m/uL (3.80-5.40); RDW 14.8 % (11.5-15.5); WBC 7.8 k/uL (3.8-10.6)
[2024-05-02 19:11] LABS: ALT 33 U/L (4-34); AST 32 U/L (14-36); African American GFR (CKD) >90 (>60 ml/min/1.73 sqM); Albumin 4.7 g/dL (3.5-5.0); Alkaline Phosphatase 48 U/L (38-126); Anion Gap 9 mmol/L; Blood Urea Nitrogen 9 mg/dL (7-17); Calcium 9.9 mg/dL (8.4-10.2); Carbon Dioxide 28 mmol/L (22-30); Chloride 102 mmol/L (98-107); Glucose 85 mg/dL (74-99); Lipase 183 U/L (23-300); Non-African American GFR(CKD) >90 (>60 ml/min/1.73 sqM); Sodium 139 mmol/L (137-145); Total Bilirubin 0.7 mg/dL (0.2-1.3); Total Protein 7.6 g/dL (6.3-8.2)
--- NOTE | 2024-05-02 19:32 | XR ---
EXAMINATION TYPE: XR KUB DATE OF EXAM: 05/02/2024 7:07 PM COMPARISON: None CLINICAL INDICATION: Female, 28 years old with history of abd pain, constipation; [facility] TECHNIQUE: One radiographic view of the abdomen was obtained. FINDINGS: The bowel gas pattern is nonspecific without dilated loops of small or large bowel. . Fecal material and gas are demonstrated throughout the colon and rectum. There is no evidence for organome danay or pneumoperitoneum. No acute osseous process. No abnormal calcifications are present. IMPRESSION: Nonspecific bowel gas pattern without radiographic evidence for acute process. [facility], , 05/02/2024 7:29 PM
[2024-05-02] MEDS: MAGNESIUM CITRATE 296 ML BOTTLE PO ONE (20:02)
[2024-05-02 20:05] VITALS: BP 117/75; PULSE 78; RESP 16; TEMP 97.9
== END 2024-05-02 20:05 | disposition home or self-care (01) ==
LOC: EC 16:24
DX: K59.00 Constipation, unspecified (principal)
CPT/HCPCS: 36415; 80053; 83605; 83690; 85025; 81001; 81025; 74018; 99284; 96374; 96375 ×2; 96361; J2405; J1171; J1885

== ENCOUNTER 2024-05-27 08:23 | Emergency (ER) | payer OTHER ==
[2024-05-27 08:26] VITALS: BP 107/70; PULSE 100; RESP 24; TEMP 98.1
[2024-05-27] MEDS: SODIUM CHLORIDE 0.9% 2,000 ML IV STA (09:06)
[2024-05-27] MEDS: diphenhydrAMINE 50 MG/ML 1 ML VIAL IVP STA (09:10)
[2024-05-27] MEDS: METOCLOPRAMIDE 5 MG/ML 2 ML VIAL IVP STA (09:10)
[2024-05-27 09:13] LABS: Basophils # (A) 0.03 10*3/uL (0.00-0.10); Basophils % (A) 0.3 %; Eosinophils # (A) 0.05 10*3/uL (0.04-0.35); Eosinophils % (A) 0.5 %; HCT 45.2 % (37.2-46.3); HGB 15.3 g/dL (12.0-15.0); Lymphocytes # (A) 0.71 10*3/uL (0.90-5.00); Lymphocytes % (A) 6.9 %; MCH 27.5 pg (27.0-32.0); MCHC 33.8 g/dL (32.0-37.0); MCV 81.1 fL (80.0-97.0); Mean Platelet Volume 9.9 fL (9.5-12.2); Monocytes % (A) 3.9 %; Neutrophils # (A) 9.09 10*3/uL (1.80-7.70); Neutrophils % (A) 88.1 %; Platelet Count 357 10*3/uL (140-440); RBC 5.57 10*6/uL (4.10-5.20); RDW 14.2 % (11.5-14.5); WBC 10.31 10*3/uL (4.50-10.00)
[2024-05-27 09:31] LABS: Appearance,Urine Clear (Clear); Bilirubin,Urine Negative (Negative); Blood,Urine Negative (Negative); Color,Urine Yellow; Glucose,Urine (UA) Negative (Negative); Ketones,Urine Negative (Negative); Leukocyte Esterase,Urine Negative (Negative); Mucus,Urine Rare /hpf; Nitrite,Urine Negative (Negative); PH, Urine 8.5 (5.0-8.0); Protein,Urine 1+ (Negative); RBC,Urine <1 /hpf (0-5); Specific Gravity,Urine 1.031 (1.001-1.035); Squamous Epithelial Cell,Urine 2 /hpf (0-4); Urobilinogen,Urine <2.0 mg/dL (<2.0); WBC,Urine <1 /hpf (0-5)
[2024-05-27 09:33] LABS: ALT 40 U/L (4-34); AST 33 U/L (14-36); African American GFR (CKD) >90 (>60 ml/min/1.73 sqM); Alkaline Phosphatase 55 U/L (38-126); Anion Gap 15 mmol/L; Blood Urea Nitrogen 19 mg/dL (7-17); Calcium 10.4 mg/dL (8.4-10.2); Carbon Dioxide 23 mmol/L (22-30); Chloride 107 mmol/L (98-107); Glucose 132 mg/dL (74-99); Lipase 211 U/L (23-300); Non-African American GFR(CKD) >90 (>60 ml/min/1.73 sqM); Potassium 4.3 mmol/L (3.5-5.1); Sodium 145 mmol/L (137-145); Total Bilirubin 1.1 mg/dL (0.2-1.3); Total Protein 7.9 g/dL (6.3-8.2)
[2024-05-27 09:40] LABS: Amphetamine Screen,Urine Detected (NotDetected); Barbiturate Screen,Urine Not Detected (NotDetected); Benzodiazepines Screen,Urine Not Detected (NotDetected); Cocaine Screen,Urine Not Detected (NotDetected); Methadone Screen, Urine Not Detected (NotDetected); Opiate Screen,Urine Not Detected (NotDetected); Oxycodone Screen, Urine Not Detected (NotDetected); Phencyclidine Screen,Urine Not Detected (NotDetected); Tricyclic Antidepressant,Urine Not Detected (NotDetected); Urn Cannabinoid Scrn Detected (NotDetected)
--- NOTE | 2024-05-27 10:09 | ED ---
Nausea/Vomiting/Diarrhea HPI - General Chief complaint: Nausea/Vomiting/Diarrhea Stated complaint: NVD Time Seen by Provider: 05/27/24 08:29 Source: patient, RN notes reviewed Mode of arrival: ambulatory Limitations: no limitations - History of Present Illness Initial comments: 28-year-old female presents emergency department with chief complaint of nausea vomiting. Patient states symptoms started overnight. Patient states that she has had no sick contacts, she has elevated abdominal pain she is complains of diffuse bodyaches without reported fever no chest pain no cough or cold-like symptoms. No headache. Denies any chance patient does admit to marijuana use. No new medications. - Related Data Home Medications Medication Instructions Recorded Confirmed Pnv No.95/Ferrous Fum/Folic AC 1 tab PO DAILY 05/26/20 11/22/23 [ Multivitamin Tablet] FLUoxetine HCL [PROzac] 40 mg PO DAILY 11/22/23 11/22/23 levETIRAcetam [Keppra] 1,000 mg PO BID 11/22/23 11/22/23 Previous Rx's Medication Instructions Recorded Amoxic-Pot Clav 875-125Mg 1 tab PO Q12HR 7 Days #14 tab 04/28/24 [Augmentin 875-125] HYDROcodone/APAP 7.5-325MG [[place] 1 tab PO Q6HR PRN 3 Days #12 tab 04/28/24 7.5-325] Ondansetron Odt [Zofran Odt] 4 mg PO Q8HR PRN #20 tab 04/28/24 Ondansetron Odt [Zofran Odt] 4 mg PO Q8HR PRN #10 tab 05/27/24 Allergies Allergy/AdvReac Type Severity Reaction Status Date / Time No Known Allergies Allergy Verified 05/27/24 08:26 Review of Systems ROS Statement: Those systems with pertinent positive or pertinent negative responses have been documented in the HPI. ROS Other: All systems not noted in ROS Statement are negative. Past Medical History Past Medical History: Thyroid Disorder History of Any Multi-Drug Resistant Organisms: None Reported Past Surgical History: Section Past Psychological History: Anxiety Smoking Status: Never smoker Past Alcohol Use History: None Reported Past Drug Use History: Marijuana General Exam Limitations: no limitations General appearance: alert, in no apparent distress Head exam: Present: atraumatic, normocephalic, normal inspection Eye exam: Present: normal appearance, PERRL, EOMI. Absent: scleral icterus, conjunctival injection, periorbital swelling ENT exam: Present: normal exam, normal oropharynx, mucous membranes moist Neck exam: Present: normal inspection, full ROM. Absent: tenderness, meningismus, lymphadenopathy Respiratory exam: Present: normal lung sounds bilaterally. Absent: respiratory distress, wheezes, rales, rhonchi, stridor Cardiovascular Exam: Present: regular rate, normal rhythm, normal heart sounds. Absent: systolic murmur, diastolic murmur, rubs, gallop, clicks GI/Abdominal exam: Present: soft, normal bowel sounds. Absent: distended, tenderness, guarding, rebound, rigid Course Vital Signs 05/27/24 08:24 Temperature 98.1 F Pulse Rate 100 Respiratory 24 Rate Blood Pressure 107/70 O2 Sat by Pulse 100 Oximetry Medical Decision Making - Medical Decision Making Was pt. sent in by a medical professional or institution (, PA, DISTRIBUTION SYSTEMS SERVICEPERSON, urgent care, hospital, or usp...) When possible be specific @ -No Did you speak to anyone other than the patient for history (EMS, parent, family, police, friend...)? What history was obtained from this source @ -No Did you review nursing and triage notes (agree or disagree)? Why? @ -I reviewed and agree with nursing and triage notes Were old charts reviewed (outside hosp., previous admission, EMS record, old EKG, old radiological studies, urgent care reports/EKG's, usp records)? Report findings @ -No old charts were reviewed Differential Diagnosis (chest pain, altered mental status, abdominal pain women, abdominal pain men, vaginal bleeding, weakness, fever, dyspnea, syncope, headache, dizziness, GI bleed, back pain, seizure, CVA, palpatations, mental health, musculoskeletal)? @ -Differential Abdominal Pain Women: Appendicitis, Cholecystitis, diverticulosis, ischemic bowel, pancreatitis, hepatitis, UTI, gastroenteritis, AAA, incarcerated hernia, bowel obstruction, constipation, inflammatory bowel, hepatitis, peptic ulcer disease, splenic infarction, perforated viscus, vulvitis, ovarian torsion, PID, kidney stone, placenta abruption, this is not meant to be an all-inclusive list EKG interpreted by me (3pts min.). @ -None X-rays interpreted by me (1pt min.). @ -None done CT interpreted by me (1pt min.). @ -None done U/S interpreted by me (1pt. min.). @ -None done What testing was considered but not performed or refused? (CT, X-rays, U/S, labs)? Why? @ -None What meds were considered but not given or refused? Why? @ -None Did you discuss the management of the patient with other professionals (professionals i.e. Dr., PA, DISTRIBUTION SYSTEMS SERVICEPERSON, lab, RT, psych nurse, rn social work, rigger helper, teacher, plain clothes police officer, supervisor case loading)? Give summary @ -No Was smoking cessation discussed for >3mins.? @ -No Was critical care preformed (if so, how long)? @ -No Were there social determinants of health that impacted care today? How? ( Homelessness, low income, unemployed, alcoholism, drug addiction, transportation, low edu. Level, literacy, decrease access to med. care, [place] [facility], rehab)? @ -No Was there de-escalation of care discussed even if they declined (Discuss DNR or withdrawal of care, Hospice)? DNR status @ -No What co-morbidities impacted this encounter? (DM, HTN, Smoking, COPD, CAD, Cancer, CVA, ARF, Chemo, Hep., AIDS, mental health diagnosis, sleep apnea, morbid obesity)? @ -None Was patient admitted / discharged? Hospital course, mention meds given and route, prescriptions, significant lab abnormalities, going to OR and other pertinent info. @ -Discharge patient feels greatly improved after IV fluids and antiemetics laboratory studies not reveal any significant findings. Patient's symptoms may be viral in nature. We discussed return parameters including fever, increasing abdominal pain or any other concerns. Undiagnosed new problem with uncertain prognosis? @ -No Drug Therapy requiring intensive monitoring for toxicity (Heparin, Nitro, Insulin, Cardizem)? @ -No Were any procedures done? @ -No Diagnosis/symptom? @ -Nausea vomiting Acute, or Chronic, or Acute on Chronic? @ -Acute Uncomplicated (without systemic symptoms) or Complicated (systemic symptoms)? @ -Complicated Side effects of treatment? @ -No Exacerbation, Progression, or Severe Exacerbation? @ -No Poses a threat to life or bodily function? How? (Chest pain, [place], [place], pneumonia, PE, COPD, DKA, ARF, appy, cholecystitis, CVA, Diverticulitis, Homicidal, Suicidal, threat to staff... and all critical care pts) @ -No - Lab Data Result diagrams: 05/27/24 09:04 05/27/24 09:04 Lab Results 05/27/24 05/27/24 05/27/24 Range/Units 09:04 09:04 09:10 WBC 10.31 H (4.50-10.00) 10*3/uL RBC 5.57 H (4.10-5.20) 10*6/uL Hgb 15.3 H (12.0-15.0) g/dL Hct 45.2 (37.2-46.3) % MCV 81.1 (80.0-97.0) fL MCH 27.5 (27.0-32.0) pg MCHC 33.8 (32.0-37.0) g/dL Plt Count 357 (140-440) 10*3/uL MPV 9.9 (9.5-12.2) fL Immature Gran % (Auto) 0.3 % Neutrophils % 88.1 % Lymphocytes % 6.9 % Monocytes % 3.9 % Eosinophils % 0.5 % Basophils % 0.3 % Immature Gran # 0.03 (0.00-0.04) 10*3/uL Neutrophils # 9.09 H (1.80-7.70) 10*3/uL Lymphocytes # 0.71 L (0.90-5.00) 10*3/uL Monocytes # 0.40 (0.20-1.00) 10*3/uL Eosinophils # 0.05 (0.04-0.35) 10*3/uL Basophils # 0.03 (0.00-0.10) 10*3/uL Sodium 145 (137-145) mmol/L Potassium 4.3 (3.5-5.1) mmol/L Chloride 107 (98-107) mmol/L Carbon Dioxide 23 (22-30) mmol/L Anion Gap 15 mmol/L BUN 19 H (7-17) mg/dL Creatinine 0.77 (0.52-1.04) mg/dL Est GFR (CKD-EPI)AfAm >90 (>60 ml/min/1.73 sqM) Est GFR (CKD-EPI)NonAf >90 (>60 ml/min/1.73 sqM) Glucose 132 H (74-99) mg/dL Calcium 10.4 H (8.4-10.2) mg/dL Total Bilirubin 1.1 (0.2-1.3) mg/dL AST 33 (14-36) U/L ALT 40 H (4-34) U/L Alkaline Phosphatase 55 (38-126) U/L Total Protein 7.9 (6.3-8.2) g/dL Albumin 5.0 (3.5-5.0) g/dL Lipase 211 (23-300) U/L Urine Color Yellow Urine Appearance Clear (Clear) Urine pH 8.5 H (5.0-8.0) Ur Specific [place] 1.031 (1.001-1.035) Urine Protein 1+ H (Negative) Urine Glucose (UA) Negative (Negative) Urine Ketones Negative (Negative) Urine Blood Negative (Negative) Urine Nitrite Negative (Negative) Urine Bilirubin Negative (Negative) Urine Urobilinogen <2.0 (<2.0) mg/dL Ur Leukocyte Esterase Negative (Negative) Urine RBC <1 (0-5) /hpf Urine WBC <1 (0-5) /hpf Ur Squamous Epith Cells 2 (0-4) /hpf Urine Mucus Rare H (None) /hpf Urine HCG, Qual (Not Detectd) Urine Opiates Screen (NotDetected) Ur Oxycodone Screen (NotDetected) Urine Methadone Screen (NotDetected) Ur Barbiturates Screen (NotDetected) U Tricyclic Antidepress (NotDetected) Ur Phencyclidine Scrn (NotDetected) Ur Amphetamines Screen (NotDetected) U Methamphetamines Scrn (NotDetected) U Benzodiazepines Scrn (NotDetected) Urine Cocaine Screen (NotDetected) U Marijuana (THC) Screen (NotDetected) 05/27/24 05/27/24 Range/Units 09:10 09:10 WBC (4.50-10.00) 10*3/uL RBC (4.10-5.20) 10*6/uL Hgb (12.0-15.0) g/dL Hct (37.2-46.3) % MCV (80.0-97.0) fL MCH (27.0-32.0) pg MCHC (32.0-37.0) g/dL Plt Count (140-440) 10*3/uL MPV (9.5-12.2) fL Immature Gran % (Auto) % Neutrophils % % Lymphocytes % % Monocytes % % Eosinophils % % Basophils % % Immature Gran # (0.00-0.04) 10*3/uL Neutrophils # (1.80-7.70) 10*3/uL Lymphocytes # (0.90-5.00) 10*3/uL Monocytes # (0.20-1.00) 10*3/uL Eosinophils # (0.04-0.35) 10*3/uL Basophils # (0.00-0.10) 10*3/uL Sodium (137-145) mmol/L Potassium (3.5-5.1) mmol/L Chloride (98-107) mmol/L Carbon Dioxide (22-30) mmol/L Anion Gap mmol/L BUN (7-17) mg/dL Creatinine (0.52-1.04) mg/dL Est GFR (CKD-EPI)AfAm (>60 ml/min/1.73 sqM) Est GFR (CKD-EPI)NonAf (>60 ml/min/1.73 sqM) Glucose (74-99) mg/dL Calcium (8.4-10.2) mg/dL Total Bilirubin (0.2-1.3) mg/dL AST (14-36) U/L ALT (4-34) U/L Alkaline Phosphatase (38-126) U/L Total Protein (6.3-8.2) g/dL Albumin (3.5-5.0) g/dL Lipase (23-300) U/L Urine Color Urine Appearance (Clear) Urine pH (5.0-8.0) Ur Specific [place] (1.001-1.035) Urine Protein (Negative) Urine Glucose (UA) (Negative) Urine Ketones (Negative) Urine Blood (Negative) Urine Nitrite (Negative) Urine Bilirubin (Negative) Urine Urobilinogen (<2.0) mg/dL Ur Leukocyte Esterase (Negative) Urine RBC (0-5) /hpf Urine WBC (0-5) /hpf Ur Squamous Epith Cells (0-4) /hpf Urine Mucus (None) /hpf Urine HCG, Qual Not Detected (Not Detectd) Urine Opiates Screen Not Detected (NotDetected) Ur Oxycodone Screen Not Detected (NotDetected) Urine Methadone Screen Not Detected (NotDetected) Ur Barbiturates Screen Not Detected (NotDetected) U Tricyclic Antidepress Not Detected (NotDetected) Ur Phencyclidine Scrn Not Detected (NotDetected) Ur Amphetamines Screen Detected H (NotDetected) U Methamphetamines Scrn Not Detected (NotDetected) U Benzodiazepines Scrn Not Detected (NotDetected) Urine Cocaine Screen Not Detected (NotDetected) U Marijuana (THC) Screen Detected H (NotDetected) Disposition Clinical Impression: Nausea & vomiting Disposition: HOME SELF-CARE Condition: Stable Instructions (If sedation given, give patient instructions): Acute Nausea and Vomiting (ED) Additional Instructions: Please return to the Emergency Department if symptoms worsen or any other concerns. Prescriptions: Ondansetron Odt [Zofran Odt] 4 mg PO Q8HR PRN #10 tab PRN Reason: Nausea Is patient prescribed a controlled substance at d/c from ED?: No Referrals: Nonstaff,Physician [Primary Care Provider] - 1-2 days Time of Disposition: 10:08
== END 2024-05-27 10:19 | disposition home or self-care (01) ==
LOC: EC 08:23
DX: R11.2 Nausea with vomiting, unspecified (principal)
CPT/HCPCS: 36415; 80053; 83690; 85025; 81001; 81025; 80306; 99284; 96374; 96375; 96361; J1200; J2765

== ENCOUNTER 2024-07-13 21:03 | Emergency (ER) | payer OTHER ==
--- NOTE | 2024-07-13 21:40 | ED ---
General Adult HPI - General Chief complaint: Urogenital Stated complaint: urogential Time Seen by Provider: 07/13/24 21:17 Source: patient Mode of arrival: ambulatory Limitations: no limitations - History of Present Illness Initial comments: This is a pleasant 28-year-old female with no significant past medical history presenting today for UTI symptoms. Patient states that today she began having burning with urination which is typical of her UTIs. She noticed a small mount of blood in her urine as well. Relief she may be starting her period. Othe rwise denies vaginal discharge, rashes or itching. Denies flank pain. Endorses lower abdominal pressure but otherwise denies abdominal pain denies nausea, vomiting or fevers. States she cannot be , she has had a prior tubal ligation. States she would normally go to an urgent care however they were closed so came here. Additionally patient has had new sexual partners so requests testing for STIs. - Related Data Home Medications Medication Instructions Recorded Confirmed Pnv No.95/Ferrous Fum/Folic AC 1 tab PO DAILY 05/26/20 11/22/23 [ Multivitamin Tablet] FLUoxetine HCL [PROzac] 40 mg PO DAILY 11/22/23 11/22/23 levETIRAcetam [Keppra] 1,000 mg PO BID 11/22/23 11/22/23 Previous Rx's Medication Instructions Recorded Amoxic-Pot Clav 875-125Mg 1 tab PO Q12HR 7 Days #14 tab 04/28/24 [Augmentin 875-125] HYDROcodone/APAP 7.5-325MG [[place] 1 tab PO Q6HR PRN 3 Days #12 tab 04/28/24 7.5-325] Ondansetron Odt [Zofran Odt] 4 mg PO Q8HR PRN #20 tab 04/28/24 Ondansetron Odt [Zofran Odt] 4 mg PO Q8HR PRN #10 tab 05/27/24 Cephalexin [Keflex] 500 mg PO Q12HR 7 Days #14 cap 07/13/24 metroNIDAZOLE 500 mg PO BID 7 Days #13 tablet 07/13/24 Allergies Allergy/AdvReac Type Severity Reaction Status Date / Time No Known Allergies Allergy Verified 07/13/24 21:30 Review of Systems ROS Statement: Those systems with pertinent positive or pertinent negative responses have been documented in the HPI. ROS Other: All systems not noted in ROS Statement are negative. Past Medical History Past Medical History: Thyroid Disorder History of Any Multi-Drug Resistant Organisms: None Reported Past Surgical History: Section Past Psychological History: Anxiety Smoking Status: Never smoker Past Alcohol Use History: Occasional Past Drug Use History: Marijuana General Exam - General Exam Comments Initial Comments: PE: CONSTITUTIONAL: No apparent distress, well appearing SKIN: Warm, dry, no jaundice, hives or petechiae EYES: Pupils are equally round, extraocular movements intact without nystagmus, clear conjunctiva, non-icteric sclera HENT: Normocephalic, atraumatic, moist mucus membranes, oropharynx clear without exudates NECK: , Full range of motion, normal appearance PULMONARY: Clear to auscultation without wheezes, rhonchi, or rales, normal excursion, no accessory muscle use and no stridor CARDIOVASCULAR: Regular rate, rhythm, normal S1 and S2. No appreciated murmurs, rubs or gallops. Strong radial pulses with intact distal perfusion. No lower extremity edema GASTROINTESTINAL: Soft, active bowel sounds throughout, non-tender, non- distended, no palpable masses, no rebound or guarding. No hepatosplenomegaly no CVA tenderness GENITOURINARY: exam was performed with Vikki RN at bedside, showed no discharge, lesions or erythema, scant amount of blood from cervical os MUSCULOSKELETAL: Extremities have no gross deformity, no edema, redness, or swelling. No calf swelling NEUROLOGIC:_a/o x 3, GCS 15, normal mentation and speech. Moves all extremities x 4 without motor or sensory deficit PSYCHIATRIC:_normal mood and affect, thought process is clear and linear Limitations: no limitations Course Vital Signs 07/13/24 21:24 Temperature 98.4 F Pulse Rate 98 Respiratory 18 Rate Blood Pressure 125/72 O2 Sat by Pulse 98 Oximetry Medical Decision Making - Medical Decision Making Was pt. sent in by a medical professional or institution (, PA, [employer], urgent care, hospital, or detention...) When possible be specific @ -[No] Did you speak to anyone other than the patient for history (EMS, parent, family, police, friend...)? What history was obtained from this source @ -[No] Did you review nursing and triage notes (agree or disagree)? Why? @ -[I reviewed nursing and triage notes] Were old charts reviewed (outside hosp., previous admission, EMS record, old EKG , old radiological studies, urgent care reports/EKG's, detention records)? Report findings @ -[Medical records reviewed]Patient was previously seen on 05/27/2024 for nausea and vomiting, she was discharged home after receiving antiemetics and IV fluids, upon review of that note Differential Diagnosis (chest pain, altered mental status, abdominal pain women, abdominal pain men, vaginal bleeding, weakness, fever, dyspnea, syncope, headache, dizziness, GI bleed, back pain, seizure, CVA, palpatations, mental health, musculoskeletal)? @Differential diagnose transmet over top considerations include acute cystitis, ureterolithiasis, pyelonephritis, vaginitis, vaginitis, PID, vaginal candidiasis, STI this is not inclusive list EKG interpreted by me (3pts min.). @ -[As above] X-rays interpreted by me (1pt min.). @ -[None done] CT interpreted by me (1pt min.). @ -[None done] U/S interpreted by me (1pt. min.). @ -[None done] What testing was considered but not performed or refused? (CT, X-rays, U/S, labs)? Why? @ -[None] What meds were considered but not given or refused? Why? @ -[None] Did you discuss the management of the patient with other professionals (professionals i.e. , PA, [employer], lab, RT, psych nurse, certified social workers in health care, promotions officer, teacher, commanding officer motorized squad, telephonic case manager)? Give summary @ -[No] Was smoking cessation discussed for >3mins.? @ -[No] Was critical care preformed (if so, how long)? @ -[No] Were there social determinants of health that impacted care today? How? (Homelessness, low income, unemployed, alcoholism, drug addiction, transportation, low edu. Level, literacy, decrease access to med. care, correction, rehab)? @ -[No] Was there de-escalation of care discussed even if they declined (Discuss DNR or withdrawal of care, Hospice)? @ -[No] What co-morbidities impacted this encounter? (DM, HTN, Smoking, COPD, CAD, Cancer, CVA, ARF, Chemo, Hep., AIDS, mental health diagnosis, sleep apnea, morbid obesity)? @ -[None] Was patient admitted / discharged? Hospital course, mention meds given and route, prescriptions, significant lab abnormalities, going to OR and other pertinent info. @ -[hospital course] patient is a previously healthy 28-year-old female presenting today for dysuria. Signs are stable on arrival. Patient is afebrile. Patient requested prophylactic testing and treatment for STIs. Patient received 1 g IM Rocephin. 1000 mg oral azithromycin. 500 mg Flagyl. Will be discharged home with flagyl 500 mg BID. Currently pending UA. Undiagnosed new problem with uncertain prognosis? @ -[No] Drug Therapy requiring intensive monitoring for toxicity (Heparin, Nitro, Insulin, Cardizem)? @ -[No] Were any procedures done? @ -[No] Diagnosis/symptom? Dysuria, STI prophylaxis Acute, or Chronic, or Acute on Chronic? acute Uncomplicated (without systemic symptoms) or Complicated (systemic symptoms)? @uncomplicated Side effects of treatment? @ -[No] Exacerbation, Progression, or Severe Exacerbation? @ -[No] Poses a threat to life or bodily function? How? (Chest pain, [place], [place], pneumonia, PE, COPD, DKA, ARF, appy, cholecystitis, CVA, Diverticulitis, Homicidal, Suicidal, threat to staff... and all critical care pts) @ -[No] - Lab Data Lab Results 07/13/24 07/13/24 Range/Units 22:02 22:02 Urine Color Yellow Urine Appearance Turbid H (Clear) Urine pH 6.5 (5.0-8.0) Ur Specific [place] 1.026 (1.001-1.035) Urine Protein 1+ H (Negative) Urine Glucose (UA) Negative (Negative) Urine Ketones Negative (Negative) Urine Blood Moderate H (Negative) Urine Nitrite Negative (Negative) Urine Bilirubin Negative (Negative) Urine Urobilinogen 2.0 (<2.0) mg/dL Ur Leukocyte Esterase Large H (Negative) Urine RBC >182 H (0-5) /hpf Urine WBC >182 H (0-5) /hpf Urine WBC Clumps Many H (None) /hpf Ur Squamous Epith Cells 1 (0-4) /hpf Urine Bacteria Occasional H (None) /hpf Urine Mucus Rare H (None) /hpf Urine HCG, Qual Not Detected (Not Detectd) Disposition Clinical Impression: Urinary tract infection Disposition: HOME SELF-CARE Instructions (If sedation given, give patient instructions): Sexually Transmitted Diseases (ED), Urinary Tract Infection in Women (ED) Additional Instructions: Every disease is a spectrum and a small chance still exists that a serious condition could develop, for this reason, please monitor yourself closely for new, changing or worsening symptoms, symptoms that do not improve over the next 48 hours/do not resolve after completion of antibiotics, fever, flank pain/back pain, inability to tolerate/keep down fluids or your medications, inability to follow up with outpatient providers as instructed and should you experience these symptoms or should you have any further concerns for your wellbeing please return to the ED or call 911 immediately. Please do not drink alcohol while taking metronidazole/Flagyl. Please use a condom or refrain from sexual intercourse while taking your antibiotics. PLEASE call your primary care physician as soon as possible to arrange / discuss plan for followup appointment. Appointment in the next 1-3 days is strongly encouraged if possible. PLEASE let us know here before you leave if there is anything further we can do to be of any assistance. Take care and feel Better! Prescriptions: Cephalexin [Keflex] 500 mg PO Q12HR 7 Days #14 cap metroNIDAZOLE 500 mg PO BID 7 Days #13 tablet Is patient prescribed a controlled substance at d/c from ED?: No Referrals: Nonstaff,Physician [REFERRING] - 1-2 days
[2024-07-13 22:53] LABS: Appearance,Urine Turbid (Clear); Bacteria,Urine Occasional /hpf; Bilirubin,Urine Negative (Negative); Blood,Urine Moderate (Negative); Color,Urine Yellow; Glucose,Urine (UA) Negative (Negative); Ketones,Urine Negative (Negative); Leukocyte Esterase,Urine Large (Negative); Mucus,Urine Rare /hpf; Nitrite,Urine Negative (Negative); PH, Urine 6.5 (5.0-8.0); Protein,Urine 1+ (Negative); RBC,Urine >182 /hpf (0-5); Specific Gravity,Urine 1.026 (1.001-1.035); Squamous Epithelial Cell,Urine 1 /hpf (0-4); WBC,Urine >182 /hpf (0-5)
[2024-07-13] MEDS ORDERED: CEPHALEXIN 500 MG CAP PO STA (23:04)
[2024-07-13] MEDS: AZITHROMYCIN 500 MG TAB PO STA (23:06)
[2024-07-13] MEDS: metroNIDAZOLE 500 MG TAB PO STA (23:09)
[2024-07-13] MEDS: cefTRIAXone 1,000 MG VIAL (IM USE) IM STA (23:12)
[2024-07-14 00:19] VITALS: BP 96/73; PULSE 76; RESP 16; TEMP 98.5
[2024-07-14 14:56] LABS: C. trachomatis,PCR Negative (Negative); N. gonorrhoeae,PCR Negative (Negative)
== END 2024-07-14 00:19 | disposition home or self-care (01) ==
LOC: EC 21:03
DX: N39.0 Urinary tract infection, site not specified (principal)
CPT/HCPCS: 81001; 81025; 87491; 87591; 87086; 99284; 96372; J0696